=== PATIENT | female | born 1965 | race African-American/Black ===

== ENCOUNTER 2018-07-08 08:17 | Day surgery (SDC) | payer MEDICARE, MEDICAID ==
[~2018-07-08] VITALS: Ht 175.3 cm; Wt 104.3 kg
[~2018-07-08 08:17] MED LIST: ALLO100T PO; AMI2 PO; ASPI-1079 PO; ASPI-1160 PO; ATOR80TA PO; Albuterol Sulfate HHN; CINA30 PO; FURO20TA4 PO; INSU3INS6 SUBCUT; KDUR10 PO; LEVO50TA8 PO; Nystatin SSW; OMEP20CA10 PO; QUET25TA PO; SENN-22 PO; SEVE800T8 PO; Spironolactone PO; ZET10 PO
[2018-07-08] MEDS ORDERED: LACTATED RINGERS 1,000 ML IV SCH (09:15)
[2018-07-08 09:17] LABS: BASOPHILS % 0.8 % (0.0-2.0); EOSINOPHILS % 1.6 % (0.0-5.0); HEMATOCRIT. 40.7 % (36.0-48.0); HEMOGLOBIN. 13.4 g/dL (12.0-16.0); LYMPHOCYTES % 11.7 % (20.0-50.0); MEAN CORPUSCULAR HEMOGLOBIN 30.6 pg (28.0-32.0); MEAN CORPUSCULAR VOLUME 93.1 fL (81.0-99.0); MEAN PLATELET VOLUME 10.7 fl (7.4-10.4); MONOCYTES % 7.5 % (2.0-8.0); NEUTROPHILS % 78.4 % (40.0-76.0); PLATELET 163 x1000/uL (130-400); RED BLOOD CELL COUNT 4.38 mill/uL (4.2-5.4); RED CELL DISTRIBUTION WIDTH 13.3 % (11.6-14.6)
[2018-07-08 09:19] LABS: CLARITY URINE CLEAR (CLEAR); COLOR URINE YELLOW (YELLOW); KETONES URINE NEGATIVE (NEGATIVE); LEUKOCYTE ESTERASE URINE TRACE (NEGATIVE); NITRITE URINE NEGATIVE (NEGATIVE); OCCULT BLOOD URINE 2+ (NEGATIVE); PROTEIN URINE TRACE (NEGATIVE); SPECIFIC GRAVITY URINE 1.025 (1.005-1.030)
[2018-07-08] MEDS ORDERED: VASOPRESSIN 20 UNIT/ML 1ML ONE (09:23)
[2018-07-08 09:29] LABS: PARTIAL THROMBOPLASTIN TIME 25.7 sec (23.4-31.0); PROTHROMBIN TIME 10.7 sec (9.6-11.0)
[2018-07-08] MEDS ORDERED: FENTANYL CITRATE/PF 50MCG/ML 2ML VIAL ONE ×2 (09:58→10:28)
[2018-07-08] MEDS ORDERED: PROPOFOL 200MG/20ML VIAL IV ONE (09:59)
[2018-07-08] MEDS ORDERED: ONDANSETRON HCL 4MG/2ML INJ ONE (09:59)
[2018-07-08] MEDS ORDERED: NEOSTIGMINE METHYLSULFATE 1MG/ML 10 ML VIAL ONE (09:59)
[2018-07-08] MEDS ORDERED: METOCLOPRAMIDE HCL 10MG/2ML VIAL ONE (09:59)
[2018-07-08] MEDS ORDERED: GLYCOPYRROLATE 0.2 MG/ML 2ML VIAL ONE (09:59)
[2018-07-08] MEDS ORDERED: PHENYLEPHRINE HCL 10 MG/ML 1ML (IV VIAL) IV ONE (09:59)
[2018-07-08] MEDS ORDERED: MIDAZOLAM HCL 2 MG/2 ML VIAL ONE (09:59)
[2018-07-08] MEDS ORDERED: SODIUM CHLORIDE 0.9% 10ML VIAL ONE (09:59)
[2018-07-08] MEDS ORDERED: ROCURONIUM BROMIDE 10MG/ML VIAL 5ML IV ONE (09:59)
[2018-07-08] MEDS ORDERED: CEFAZOLIN SODIUM 1000MG/VIAL ONE (09:59)
[2018-07-08] MEDS ORDERED: EPHEDRINE SULFATE 50MG/ML VIAL ONE (09:59)
[2018-07-08] MEDS ORDERED: LIDOCAINE HCL/PF 1% 10 MG/ML 5ML VIAL ONE (09:59)
[2018-07-08] MEDS ORDERED: SUCCINYLCHOLINE CHLORIDE 200MG/10ML IV ONE (09:59)
[2018-07-08] MEDS ORDERED: DEXAMETHASONE 4MG/ML 1ML VIAL ONE (09:59)
[2018-07-08] MEDS ORDERED: DOCU-138 PO (10:00)
[2018-07-08] MEDS ORDERED: SIMV10TA6 PO (10:00)
[2018-07-08] MEDS ORDERED: SACU1TAB4 PO (10:00)
[2018-07-08] MEDS ORDERED: TRAM50TA3 PO (10:00)
[2018-07-08] MEDS ORDERED: DIGO125T20 PO (10:01)
[2018-07-08] MEDS ORDERED: CARV25TA47 PO (10:01)
[2018-07-08] MEDS ORDERED: SPIR25TA6 PO (10:01)
[2018-07-08 10:15] LABS: UCG SCREEN NEGATIVE
[2018-07-08] MEDS ORDERED: ETOMIDATE 2MG/ML 10ML VIAL IV ONE (10:40)
[2018-07-08] MEDS ORDERED: SODIUM CHLORIDE 0.9% 1,000 ML IV ONE (11:25)
[2018-07-08] MEDS ORDERED: ONDANSETRON HCL 4MG/2ML INJ IV PRN (11:30)
[2018-07-08] MEDS ORDERED: MEPERIDINE HCL/PF 25MG/ML CPJ IV PRN (11:30)
[2018-07-08] MEDS: HYDROMORPHONE HCL/PF 2MG/ML CPJ IV PRN ×3 (11:46→12:09)
[2018-07-08 12:09] VITALS: BP 152/87
== END 2018-07-08 13:15 | disposition home or self-care (01) ==
LOC: OR 08:17
PROVIDERS: ATTEND Obstetrics & Gynecology Obstetrics
DX: N85.8 Other specified noninflammatory disorders of uterus (principal)
CPT/HCPCS: 36415; 58558; 80048; 81003; 81025; 85025; 85610; 85730; 88305; 93005; J0330; J0690; J1100; J1170; J2175; J2250; J2370; J2405; J2704; J2765; J3010; J3490; J2710

== ENCOUNTER 2018-12-31 09:40 | Emergency (ER) | payer MEDICARE, MEDICAID ==
[~2018-12-31 09:40] MED LIST changes: -ATOR80TA PO; +CARV25TA47 PO; +DIGO125T20 PO; +DOCU-138 PO; +EZET10TA13 PO; -INSU3INS6 SUBCUT; -OMEP20CA10 PO; +OMEP20CA5 PO; +SACU1TAB4 PO; +SIMV10TA6 PO; +SPIR25TA6 PO; +TRAM50TA3 PO; -ZET10 PO
== END 2018-12-31 10:45 | disposition left against medical advice (07) ==
LOC: ER 09:40
DX: Z53.21 Procedure and treatment not carried out due to patient leaving prior to being seen by health care provider (principal)

== ENCOUNTER 2019-08-01 13:38 | Inpatient (IN) | payer MEDICARE, MEDICAID ==
[~2019-08-01] VITALS: Ht 175.3 cm; Wt 129.3 kg
[~2019-08-01 13:38] MED LIST changes: +OMEP20CA14 PO; -OMEP20CA5 PO; -SIMV10TA6 PO; +SIMV10TA97 PO
[2019-08-01] MEDS ORDERED: FUROSEMIDE 40MG/4ML VIAL IVP ONE (14:30)
[2019-08-01 16:27] LABS: CHLORIDE 112 mEq/L (98-107)
[2019-08-01 16:29] LABS: INR 1.1; PROTHROMBIN TIME 11.4 sec (9.6-11.0)
[2019-08-01 16:43] LABS: BASOPHILS % 0.8 % (0.0-2.0); EOSINOPHILS % 0.6 % (0.0-5.0); HEMATOCRIT. 34.8 % (36.0-48.0); HEMOGLOBIN. 11.6 g/dL (12.0-16.0); LYMPHOCYTES % 13.1 % (20.0-50.0); MEAN CORPUSCULAR HEMOGLOBIN 31.5 pg (28.0-32.0); MEAN CORPUSCULAR VOLUME 94.7 fL (81.0-99.0); MEAN PLATELET VOLUME 9.9 fl (7.4-10.4); MONOCYTES % 6.8 % (2.0-8.0); NEUTROPHILS % 78.7 % (40.0-76.0); PLATELET 205 x1000/uL (130-400); RED BLOOD CELL COUNT 3.67 mill/uL (4.2-5.4); RED CELL DISTRIBUTION WIDTH 14.7 % (11.6-14.6)
[2019-08-01] MEDS ORDERED: ONDANSETRON HCL 4MG/2ML INJ IV ONE (16:45)
[2019-08-01 21:42] VITALS: BP 144/53
[2019-08-01] MEDS ORDERED: CINACALCET HCL 30MG TABLET PO PRN (23:00)
[2019-08-02] VITALS (11 sets, daily range): BP systolic 86–144; BP diastolic 34–77
[2019-08-02] MEDS: ALBUTEROL (0.083%) 2.5MG/3ML NEB HHN SCH ×6 (01:56→21:08)
[2019-08-02] MEDS ORDERED: TRAMADOL 50MG TABLET PO PRN (02:32)
[2019-08-02] MEDS: LEVOTHYROXINE SODIUM 50MCG TABLET PO SCH (05:46)
[2019-08-02] MEDS: OMEPRAZOLE 20MG CAPSULE EXTENDED RELEASE PO SCH ×2 (05:46→16:59)
[2019-08-02] MEDS: ASPIRIN 325MG EC TABLET PO SCH (08:51)
[2019-08-02] MEDS: ALLOPURINOL 100 MG TABLET PO SCH (08:52)
[2019-08-02] MEDS: EZETIMIBE 10MG TABLET PO SCH (08:52)
[2019-08-02] MEDS: CARVEDILOL 12.5MG TABLET PO SCH ×2 (08:52→20:31)
[2019-08-02] MEDS: SPIRONOLACTONE 25MG TABLET PO SCH (08:52)
[2019-08-02] MEDS: POTASSIUM CHLORIDE 10MEQ TABLET SR PO SCH (08:53)
[2019-08-02] MEDS: AMIODARONE HCL 200 MG TABLET PO SCH (08:53)
[2019-08-02] MEDS: SEVELAMER CARBONATE 800 MG TABLET PO SCH ×3 (08:53→20:30)
[2019-08-02] MEDS: QUETIAPINE FUMARATE 25MG TABLET PO SCH ×2 (08:53→20:30)
[2019-08-02] MEDS ORDERED: METOLAZONE 5MG TABLET PO NR (14:00)
[2019-08-02] MEDS ORDERED: FUROSEMIDE 40MG/4ML VIAL IVP NR (14:00)
[2019-08-02] MEDS: MILRINONE 20MG-DEXT 5% PREMIX 100 ML IV SCH ×2 (15:36→20:31)
[2019-08-02] MEDS: SENNOSIDES 8.6MG TABLET PO SCH (16:26)
[2019-08-02] MEDS: DOCUSATE SODIUM 100MG CAPSULE PO SCH (16:26)
[2019-08-02] MEDS: DIGOXIN 125MCG TABLET PO SCH (17:36)
[2019-08-03] VITALS (7 sets, daily range): BP systolic 107–160; BP diastolic 52–91
[2019-08-03] MEDS: ALBUTEROL (0.083%) 2.5MG/3ML NEB HHN SCH ×6 (01:50→20:23)
[2019-08-03] MEDS: MILRINONE 20MG-DEXT 5% PREMIX 100 ML IV SCH ×2 (03:09→18:32)
[2019-08-03] MEDS: OMEPRAZOLE 20MG CAPSULE EXTENDED RELEASE PO SCH (06:50)
[2019-08-03] MEDS: LEVOTHYROXINE SODIUM 50MCG TABLET PO SCH (06:50)
[2019-08-03 07:59] LABS: BASOPHILS % 0.8 % (0.0-2.0); EOSINOPHILS % 2.4 % (0.0-5.0); HEMATOCRIT. 36.1 % (36.0-48.0); HEMOGLOBIN. 11.7 g/dL (12.0-16.0); LYMPHOCYTES % 20.3 % (20.0-50.0); MEAN CORPUSCULAR HEMOGLOBIN 31.8 pg (28.0-32.0); MEAN CORPUSCULAR VOLUME 98.3 fL (81.0-99.0); MONOCYTES % 11.8 % (2.0-8.0); NEUTROPHILS % 64.7 % (40.0-76.0); RED BLOOD CELL COUNT 3.67 mill/uL (4.2-5.4); RED CELL DISTRIBUTION WIDTH 15.1 % (11.6-14.6)
[2019-08-03] MEDS: SEVELAMER CARBONATE 800 MG TABLET PO SCH ×3 (08:10→18:41)
[2019-08-03] MEDS: ASPIRIN 325MG EC TABLET PO SCH (08:10)
[2019-08-03] MEDS: AMIODARONE HCL 200 MG TABLET PO SCH (08:10)
[2019-08-03] MEDS: SENNOSIDES 8.6MG TABLET PO SCH (08:10)
[2019-08-03] MEDS: QUETIAPINE FUMARATE 25MG TABLET PO SCH ×2 (08:11→21:02)
[2019-08-03] MEDS: ALLOPURINOL 100 MG TABLET PO SCH (08:11)
[2019-08-03] MEDS: DOCUSATE SODIUM 100MG CAPSULE PO SCH (08:11)
[2019-08-03] MEDS: CARVEDILOL 12.5MG TABLET PO SCH ×2 (08:11→21:02)
[2019-08-03] MEDS: SPIRONOLACTONE 25MG TABLET PO SCH (08:12)
[2019-08-03] MEDS: EZETIMIBE 10MG TABLET PO SCH (08:12)
[2019-08-03] MEDS: POTASSIUM CHLORIDE 10MEQ TABLET SR PO SCH (09:00)
[2019-08-03] MEDS ORDERED: FENTANYL CITRATE/PF 50MCG/ML 2ML VIAL IV PRN (09:48)
[2019-08-03] MEDS ORDERED: MIDAZOLAM HCL 2 MG/2 ML VIAL ONE (09:48)
[2019-08-03] MEDS ORDERED: FENTANYL CITRATE/PF 50MCG/ML 2ML VIAL ONE (09:48)
[2019-08-03] MEDS ORDERED: DOPAMINE 400MG/250ML PREMIX 250 ML IV ONE (09:56)
[2019-08-03] MEDS ORDERED: PROPOFOL 200MG/20ML VIAL IV ONE ×2 (09:58→14:39)
[2019-08-03] MEDS ORDERED: ROCURONIUM BROMIDE 10MG/ML VIAL 5ML IV ONE (10:14)
[2019-08-03] MEDS ORDERED: IODIXANOL 320MG/ML 100 ML BOTTLE IV ONE (10:24)
[2019-08-03] MEDS ORDERED: LIDOCAINE HCL 1% 20ML VIAL (Pyxis) INJ ONE ×3 (10:29→12:26)
[2019-08-03] MEDS ORDERED: LIDOCAINE HCL/PF 1% 10 MG/ML 5ML VIAL ONE (10:58)
[2019-08-03] MEDS ORDERED: GENTAMICIN/NS IRRIGATION 500 ML IR ONE (12:21)
[2019-08-03] MEDS ORDERED: EPHEDRINE SULFATE 50MG/ML VIAL ONE (14:40)
[2019-08-03] MEDS ORDERED: VASOPRESSIN 20 UNIT/ML 1ML ONE (14:40)
[2019-08-03] MEDS ORDERED: GENTAMICIN SULF 40MG/ML 2ML VIAL ONE (15:04)
[2019-08-03] MEDS: SODIUM CHLORIDE 0.9% 1,000 ML IV SCH (16:30)
[2019-08-03] MEDS: ONDANSETRON HCL 4MG/2ML INJ IV PRN ×2 (16:49→19:40)
[2019-08-03] MEDS ORDERED: VANCOMYCIN 1 G PREMIX 200 ML IV NR (17:00)
[2019-08-03] MEDS: DIGOXIN 125MCG TABLET PO SCH (18:37)
[2019-08-03] MEDS ORDERED: ONDANSETRON HCL 4MG/2ML INJ IV PRN (19:15)
[2019-08-03] MEDS: HYDROCODONE/ACETAMINOPHEN 5/325MG TABLET PO PRN (21:03)
[2019-08-03] MEDS ORDERED: HYDROMORPHONE HCL/PF 2MG/ML CPJ IV PRN (23:00)
[2019-08-04] VITALS (10 sets, daily range): BP systolic 91–122; BP diastolic 43–72
[2019-08-04] MEDS: MILRINONE 20MG-DEXT 5% PREMIX 100 ML IV SCH ×3 (01:12→21:21)
[2019-08-04] MEDS: ALBUTEROL (0.083%) 2.5MG/3ML NEB HHN SCH ×5 (01:37→21:53)
[2019-08-04] MEDS ORDERED: FAMOTIDINE 20MG TABLET PO SCH (09:00)
[2019-08-04] MEDS: CARVEDILOL 12.5MG TABLET PO SCH ×2 (09:20→21:19)
[2019-08-04] MEDS: EZETIMIBE 10MG TABLET PO SCH (09:20)
[2019-08-04] MEDS: SEVELAMER CARBONATE 800 MG TABLET PO SCH ×3 (09:21→17:20)
[2019-08-04] MEDS: ASPIRIN 325MG EC TABLET PO SCH (09:21)
[2019-08-04] MEDS: ALLOPURINOL 100 MG TABLET PO SCH (09:22)
[2019-08-04] MEDS: LEVOTHYROXINE SODIUM 50MCG TABLET PO SCH (09:22)
[2019-08-04] MEDS: SENNOSIDES 8.6MG TABLET PO SCH (09:22)
[2019-08-04] MEDS: POTASSIUM CHLORIDE 10MEQ TABLET SR PO SCH (09:22)
[2019-08-04] MEDS: AMIODARONE HCL 200 MG TABLET PO SCH (09:23)
[2019-08-04] MEDS: SPIRONOLACTONE 25MG TABLET PO SCH (09:24)
[2019-08-04] MEDS: DOCUSATE SODIUM 100MG CAPSULE PO SCH (09:24)
[2019-08-04] MEDS: QUETIAPINE FUMARATE 25MG TABLET PO SCH ×2 (09:24→21:19)
[2019-08-04 11:26] LABS: HEMATOCRIT. 32.9 % (36.0-48.0); HEMOGLOBIN. 10.9 g/dL (12.0-16.0); MEAN CORPUSCULAR HEMOGLOBIN 31.6 pg (28.0-32.0); MEAN CORPUSCULAR VOLUME 95.4 fL (81.0-99.0); MEAN PLATELET VOLUME 10.2 fl (7.4-10.4); PLATELET 174 x1000/uL (130-400); RED BLOOD CELL COUNT 3.45 mill/uL (4.2-5.4); RED CELL DISTRIBUTION WIDTH 14.3 % (11.6-14.6)
[2019-08-04 12:09] LABS: DIGOXIN 0.5 ng/mL (0.9-2.0)
[2019-08-04] MEDS: SODIUM CHLORIDE 0.9% 1,000 ML IV SCH (12:30)
[2019-08-04 12:48] LABS: PLATELET ESTIMATE NORMAL
[2019-08-04] MEDS ORDERED: SODIUM BICARBONATE 4% (2.4MEQ) 5ML VIAL IV ONE (12:50)
[2019-08-04] MEDS ORDERED: LIDOCAINE HCL 1% 20ML VIAL (Pyxis) INJ ONE (12:50)
[2019-08-04] MEDS ORDERED: IOHEXOL-300 50 ML BOTTLE IV ONE (13:19)
[2019-08-04] MEDS: HYDROCODONE/ACETAMINOPHEN 5/325MG TABLET PO PRN (15:18)
[2019-08-04] MEDS: DIGOXIN 125MCG TABLET PO SCH (18:40)
[2019-08-04] MEDS ORDERED: DOCUSATE SODIUM 100MG CAPSULE PO SCH (21:00)
[2019-08-04] MEDS ORDERED: BISACODYL 10MG SUPP PR PRN (21:00)
[2019-08-05] VITALS (49 sets, daily range): BP systolic 43–162; BP diastolic 0–81
[2019-08-05] MEDS: HYDROCODONE/ACETAMINOPHEN 5/325MG TABLET PO PRN (03:39)
[2019-08-05] MEDS: MILRINONE 20MG-DEXT 5% PREMIX 100 ML IV SCH (04:06)
[2019-08-05] MEDS: BLOOD SUGAR DIAGNOSTIC STRIP TEST NR (05:36)
[2019-08-05] MEDS ORDERED: BUPIVACAINE/EPINEPH/PF 0.25%/0.0005 10ML ONE (05:58)
[2019-08-05] MEDS ORDERED: LIDOCAINE HCL/EPINEPHRINE 1%-EPI 1:100,000 20 ML VIAL ONE (05:58)
[2019-08-05] MEDS ORDERED: VANCOMYCIN 1 G PREMIX 200 ML IV ONE (06:00)
[2019-08-05] MEDS ORDERED: ROPIVACAINE HCL/PF EPIDURAL 200 ML EPI SCH (06:00)
[2019-08-05] MEDS ORDERED: BACITRACIN 50,000 UNITS/VIAL ONE ×2 (06:31→12:01)
[2019-08-05] MEDS ORDERED: BACITRACIN 15GM TUBE TOP ONE (06:31)
[2019-08-05] MEDS ORDERED: NORMAL SALINE 0.9% 10 ML SYR ONE (06:39)
[2019-08-05] MEDS: LEVOTHYROXINE SODIUM 50MCG TABLET PO SCH (06:50)
[2019-08-05] MEDS ORDERED: MIDAZOLAM HCL 5 MG/ML VIAL ONE (07:06)
[2019-08-05] MEDS ORDERED: TETRACAINE/BENZOCAINE/BUTAMBEN 20 GM SPRAY MM ONE (07:08)
[2019-08-05] MEDS ORDERED: DEXAMETHASONE 4MG/ML 1ML VIAL ONE (07:08)
[2019-08-05] MEDS ORDERED: PROPOFOL 200MG/20ML VIAL IV ONE (07:08)
[2019-08-05] MEDS ORDERED: ETOMIDATE 2MG/ML 10ML VIAL IV ONE (07:08)
[2019-08-05] MEDS ORDERED: ONDANSETRON HCL 4MG/2ML INJ ONE (07:08)
[2019-08-05 07:12] LABS: CHLORIDE 106 mEq/L (98-107)
[2019-08-05] MEDS ORDERED: SKIN ADHESIVE 0.7 GM EA TOP ONE (07:35)
[2019-08-05] MEDS: ALBUTEROL (0.083%) 2.5MG/3ML NEB HHN SCH ×3 (07:43→21:45)
[2019-08-05] MEDS: SENNOSIDES 8.6MG TABLET PO SCH (09:00)
[2019-08-05] MEDS: SPIRONOLACTONE 25MG TABLET PO SCH (09:00)
[2019-08-05] MEDS: CARVEDILOL 12.5MG TABLET PO SCH ×2 (09:00→21:00)
[2019-08-05] MEDS: AMIODARONE HCL 200 MG TABLET PO SCH (09:00)
[2019-08-05] MEDS: POTASSIUM CHLORIDE 10MEQ TABLET SR PO SCH (09:00)
[2019-08-05] MEDS: ALLOPURINOL 100 MG TABLET PO SCH (09:00)
[2019-08-05] MEDS: QUETIAPINE FUMARATE 25MG TABLET PO SCH ×2 (09:00→21:00)
[2019-08-05] MEDS: EZETIMIBE 10MG TABLET PO SCH (09:00)
[2019-08-05] MEDS ORDERED: CLINDAMYCIN 900 MG PREMIX 50 ML IV ONE (09:20)
[2019-08-05] MEDS ORDERED: ROCURONIUM BROMIDE 10MG/ML VIAL 5ML IV ONE (09:25)
[2019-08-05] MEDS ORDERED: THROMBIN (BOVINE) 5000 UNITS/VIAL TOP ONE (10:52)
[2019-08-05] MEDS ORDERED: PHENYLEPHRINE HCL 10 MG/ML 1ML (IV VIAL) IV ONE (11:04)
[2019-08-05] MEDS ORDERED: NEOSTIGMINE METHYLSULFATE 1MG/ML 10 ML VIAL ONE (11:26)
[2019-08-05] MEDS ORDERED: EPHEDRINE SULFATE 50MG/ML VIAL ONE (11:26)
[2019-08-05] MEDS ORDERED: LIDOCAINE HCL/PF 1% 10 MG/ML 5ML VIAL ONE (11:26)
[2019-08-05] MEDS ORDERED: EPINEPHRINE 0.1MG/ML (1:10,000) 10ML SYR ONE (11:30)
[2019-08-05] MEDS ORDERED: MILRINONE 20MG-DEXT 5% PREMIX 100 ML IV SCH (12:59)
[2019-08-05] MEDS ORDERED: SODIUM CHLORIDE 0.9% 500 ML IV PRN (12:59)
[2019-08-05] MEDS ORDERED: ACETAMINOPHEN 325MG TABLET PO PRN (13:00)
[2019-08-05] MEDS ORDERED: ONDANSETRON HCL 4MG/2ML INJ IV PRN (13:00)
[2019-08-05 13:15] LABS: BG BASE EXCESS -2.1 mmol/L (-2.0-2.0); BG CARBOXYHEMOGLOBIN 0.3 % (0.5-1.5); BG DEOXYHEMOGLOBIN 3.9 % (0.0-5.0); BG FRACTION INSPIRED OXYGEN 44; BG HCO3 ACT 23.8 mmol/L (22.0-26.0); BG METHEMOGLOBIN 0.1 % (0.0-1.5); BG OXYGEN SATURATION 96.1 % (92.0-98.5); BG OXYHEMOGLOBIN 95.7 % (94.0-97.0); BG PCO2 45.1 mmHg (35.0-45.0); BG PO2 84.7 mmHg (75.0-100.0); BG SAMPLE SITE A-LINE; BG TOTAL HEMOGLOBIN 11.3 g/dL (12.0-18.0); BG VENT MODE MASK - SIMPLE
[2019-08-05] MEDS: SEVELAMER CARBONATE 800 MG TABLET PO SCH ×2 (13:20→18:25)
[2019-08-05] MEDS ORDERED: FUROSEMIDE 40MG/4ML VIAL IVP NR (14:00)
[2019-08-05] MEDS: DOCUSATE SODIUM 100MG CAPSULE PO SCH ×2 (14:51→18:25)
[2019-08-05] MEDS: MAGNESIUM HYDROXIDE 400MG/5ML 30ML UDC PO SCH ×3 (14:51→21:11)
[2019-08-05 14:54] LABS: CHLORIDE 108 mEq/L (98-107)
[2019-08-05 15:00] LABS: HEMOGLOBIN. 10.5 g/dL (12.0-16.0); MEAN CORPUSCULAR HEMOGLOBIN 31.9 pg (28.0-32.0); MEAN CORPUSCULAR VOLUME 94.3 fL (81.0-99.0); MEAN PLATELET VOLUME 10.5 fl (7.4-10.4); PHOSPHORUS 2.7 mg/dL (2.5-4.9); PLATELET 177 x1000/uL (130-400); RED BLOOD CELL COUNT 3.29 mill/uL (4.2-5.4); RED CELL DISTRIBUTION WIDTH 14.3 % (11.6-14.6)
[2019-08-05 15:22] LABS: PLATELET ESTIMATE NORMAL
[2019-08-05] MEDS: IPRATROPIUM/ALBUTEROL 0.5-3(2.5)MG/3ML NEB HHN SCH ×2 (16:33→20:31)
[2019-08-05] MEDS: DIGOXIN 125MCG TABLET PO SCH (18:00)
[2019-08-05] MEDS: DEXT 5%/0.45% NACL 1000ML 1,000 ML IV SCH (18:25)
[2019-08-05] MEDS: VANCOMYCIN 1 G PREMIX 200 ML IV SCH (19:27)
[2019-08-05 20:29] LABS: HEMATOCRIT. 31.3 % (36.0-48.0); HEMOGLOBIN. 10.4 g/dL (12.0-16.0); MEAN CORPUSCULAR HEMOGLOBIN 31.5 pg (28.0-32.0); MEAN CORPUSCULAR VOLUME 94.9 fL (81.0-99.0); MEAN PLATELET VOLUME 10.1 fl (7.4-10.4); PLATELET 173 x1000/uL (130-400); RED CELL DISTRIBUTION WIDTH 14.4 % (11.6-14.6)
[2019-08-05] MEDS: MORPHINE SULFATE 2 MG/ML CPJ (NOT FOR IM USE) IV PRN ×2 (20:32→22:16)
[2019-08-05 21:53] LABS: PLATELET ESTIMATE NORMAL
[2019-08-06] VITALS (63 sets, daily range): BP systolic 75–149; BP diastolic 31–110
[2019-08-06] MEDS: MORPHINE SULFATE 2 MG/ML CPJ (NOT FOR IM USE) IV PRN ×3 (00:02→06:04)
[2019-08-06] MEDS: MAGNESIUM HYDROXIDE 400MG/5ML 30ML UDC PO SCH ×4 (00:02→13:25)
[2019-08-06] MEDS: IPRATROPIUM/ALBUTEROL 0.5-3(2.5)MG/3ML NEB HHN SCH ×6 (00:13→20:44)
[2019-08-06 00:51] LABS: HEMATOCRIT. 30.6 % (36.0-48.0); HEMOGLOBIN. 10.3 g/dL (12.0-16.0); MEAN CORPUSCULAR HEMOGLOBIN 31.7 pg (28.0-32.0); MEAN CORPUSCULAR VOLUME 93.8 fL (81.0-99.0); MEAN PLATELET VOLUME 9.4 fl (7.4-10.4); PLATELET 163 x1000/uL (130-400); RED BLOOD CELL COUNT 3.26 mill/uL (4.2-5.4); RED CELL DISTRIBUTION WIDTH 14.4 % (11.6-14.6)
[2019-08-06 01:46] LABS: PLATELET ESTIMATE NORMAL
[2019-08-06] MEDS: BLOOD SUGAR DIAGNOSTIC STRIP TEST NR (05:00)
[2019-08-06 05:28] LABS: HEMOGLOBIN. 10.3 g/dL (12.0-16.0); MEAN CORPUSCULAR HEMOGLOBIN 31.4 pg (28.0-32.0); MEAN CORPUSCULAR VOLUME 94.7 fL (81.0-99.0); MEAN PLATELET VOLUME 10.1 fl (7.4-10.4); PLATELET 165 x1000/uL (130-400); RED BLOOD CELL COUNT 3.28 mill/uL (4.2-5.4); RED CELL DISTRIBUTION WIDTH 14.4 % (11.6-14.6)
[2019-08-06 06:12] LABS: PHOSPHORUS 2.1 mg/dL (2.5-4.9)
[2019-08-06] MEDS ORDERED: ALBUMIN HUMAN 12.5G/250ML (5%) IV SCH (09:00)
[2019-08-06] MEDS ORDERED: ROPIVACAINE HCL/PF EPIDURAL 200 ML EPI SCH (09:15)
[2019-08-06] MEDS: POTASSIUM CHLORIDE 10MEQ TABLET SR PO SCH (09:52)
[2019-08-06] MEDS: FAMOTIDINE 20MG/2ML VIAL IV SCH (09:52)
[2019-08-06] MEDS: SEVELAMER CARBONATE 800 MG TABLET PO SCH ×3 (09:52→17:00)
[2019-08-06] MEDS: LEVOTHYROXINE SODIUM 50MCG TABLET PO SCH (09:52)
[2019-08-06] MEDS: AMIODARONE HCL 200 MG TABLET PO SCH (09:53)
[2019-08-06] MEDS: DOCUSATE SODIUM 100MG CAPSULE PO SCH ×2 (09:53→17:00)
[2019-08-06] MEDS: SENNOSIDES 8.6MG TABLET PO SCH (09:53)
[2019-08-06] MEDS: EZETIMIBE 10MG TABLET PO SCH (09:53)
[2019-08-06] MEDS: QUETIAPINE FUMARATE 25MG TABLET PO SCH ×2 (09:53→20:25)
[2019-08-06] MEDS: SPIRONOLACTONE 25MG TABLET PO SCH (09:54)
[2019-08-06] MEDS: ALLOPURINOL 100 MG TABLET PO SCH (09:55)
[2019-08-06 10:08] LABS: PLATELET ESTIMATE NORMAL
[2019-08-06] MEDS: CARVEDILOL 12.5MG TABLET PO SCH ×2 (10:30→20:25)
[2019-08-06] MEDS ORDERED: FUROSEMIDE 40MG/4ML VIAL IVP NR (11:37)
[2019-08-06] MEDS: DEXT 5%/0.45% NACL 1000ML 1,000 ML IV SCH (13:25)
[2019-08-06] MEDS: HYDROCODONE/ACETAMINOPHEN 5/325MG TABLET PO PRN (13:26)
[2019-08-06] MEDS ORDERED: ALBUMIN HUMAN 12.5G/250ML (5%) IV NR (16:00)
[2019-08-06] MEDS: VANCOMYCIN 1 G PREMIX 200 ML IV SCH (16:58)
[2019-08-06] MEDS: DIGOXIN 125MCG TABLET PO SCH (17:00)
[2019-08-07] VITALS (42 sets, daily range): BP systolic 85–167; BP diastolic 40–159
[2019-08-07] MEDS: IPRATROPIUM/ALBUTEROL 0.5-3(2.5)MG/3ML NEB HHN SCH ×4 (00:27→16:30)
[2019-08-07] MEDS: HYDROCODONE/ACETAMINOPHEN 5/325MG TABLET PO PRN ×2 (01:57→15:27)
[2019-08-07 06:28] LABS: HEMATOCRIT. 28.5 % (36.0-48.0); HEMOGLOBIN. 9.4 g/dL (12.0-16.0); MEAN PLATELET VOLUME 10.4 fl (7.4-10.4); PLATELET 145 x1000/uL (130-400); RED BLOOD CELL COUNT 3.03 mill/uL (4.2-5.4); RED CELL DISTRIBUTION WIDTH 14.4 % (11.6-14.6)
[2019-08-07 06:41] LABS: PHOSPHORUS 2.9 mg/dL (2.5-4.9)
[2019-08-07] MEDS: LEVOTHYROXINE SODIUM 50MCG TABLET PO SCH (08:02)
[2019-08-07] MEDS: DOCUSATE SODIUM 100MG CAPSULE PO SCH ×2 (08:28→17:47)
[2019-08-07] MEDS: SPIRONOLACTONE 25MG TABLET PO SCH (08:29)
[2019-08-07] MEDS: POTASSIUM CHLORIDE 10MEQ TABLET SR PO SCH (08:30)
[2019-08-07] MEDS: EZETIMIBE 10MG TABLET PO SCH (08:30)
[2019-08-07] MEDS: ALLOPURINOL 100 MG TABLET PO SCH (08:30)
[2019-08-07] MEDS: SEVELAMER CARBONATE 800 MG TABLET PO SCH ×3 (08:30→17:47)
[2019-08-07] MEDS: QUETIAPINE FUMARATE 25MG TABLET PO SCH ×2 (08:30→22:10)
[2019-08-07] MEDS: FAMOTIDINE 20MG/2ML VIAL IV SCH (08:30)
[2019-08-07] MEDS: SENNOSIDES 8.6MG TABLET PO SCH (08:30)
[2019-08-07] MEDS: AMIODARONE HCL 200 MG TABLET PO SCH (08:30)
[2019-08-07] MEDS: CARVEDILOL 12.5MG TABLET PO SCH ×2 (08:31→22:10)
[2019-08-07] MEDS: DEXT 5%/0.45% NACL 1000ML 1,000 ML IV SCH (09:05)
[2019-08-07 10:03] LABS: CLARITY URINE CLOUDY (CLEAR); COLOR URINE YELLOW (YELLOW); KETONES URINE NEGATIVE (NEGATIVE); LEUKOCYTE ESTERASE URINE 1+ (NEGATIVE); NITRITE URINE NEGATIVE (NEGATIVE); OCCULT BLOOD URINE 3+ (NEGATIVE); PROTEIN URINE 1+ (NEGATIVE); SPECIFIC GRAVITY URINE 1.023 (1.005-1.030)
[2019-08-07 11:56] LABS: PLATELET ESTIMATE NORMAL
[2019-08-07] MEDS ORDERED: LORAZEPAM 2MG/ML CPJ IV PRN (15:30)
[2019-08-07] MEDS ORDERED: VANCOMYCIN 1 G PREMIX 200 ML IV SCH (16:00)
[2019-08-07] MEDS ORDERED: ROPIVACAINE HCL/PF EPIDURAL 200 ML EPI SCH (17:30)
[2019-08-07] MEDS: DIGOXIN 125MCG TABLET PO SCH (17:47)
[2019-08-08] VITALS (42 sets, daily range): BP systolic 77–181; BP diastolic 32–127
[2019-08-08] MEDS: ALBUTEROL (0.083%) 2.5MG/3ML NEB HHN SCH ×3 (00:33→20:15)
[2019-08-08] MEDS: CARVEDILOL 12.5MG TABLET PO SCH ×4 (00:36→20:26)
[2019-08-08] MEDS: HYDROCODONE/ACETAMINOPHEN 5/325MG TABLET PO PRN ×2 (01:32→15:02)
[2019-08-08] MEDS: FAMOTIDINE 20MG/2ML VIAL IV SCH (08:25)
[2019-08-08] MEDS: ALLOPURINOL 100 MG TABLET PO SCH (08:26)
[2019-08-08] MEDS: LEVOTHYROXINE SODIUM 50MCG TABLET PO SCH (08:26)
[2019-08-08] MEDS: SPIRONOLACTONE 25MG TABLET PO SCH (08:26)
[2019-08-08] MEDS: EZETIMIBE 10MG TABLET PO SCH (08:27)
[2019-08-08] MEDS: QUETIAPINE FUMARATE 25MG TABLET PO SCH ×2 (08:27→20:50)
[2019-08-08] MEDS: SENNOSIDES 8.6MG TABLET PO SCH (08:27)
[2019-08-08] MEDS: SEVELAMER CARBONATE 800 MG TABLET PO SCH ×3 (08:27→18:04)
[2019-08-08] MEDS: AMIODARONE HCL 200 MG TABLET PO SCH (08:27)
[2019-08-08] MEDS: DOCUSATE SODIUM 100MG CAPSULE PO SCH ×2 (08:27→18:04)
[2019-08-08] MEDS: IPRATROPIUM/ALBUTEROL 0.5-3(2.5)MG/3ML NEB HHN SCH ×3 (09:45→17:12)
[2019-08-08 11:15] LABS: BASOPHILS % 0.7 % (0.0-2.0); EOSINOPHILS % 2.6 % (0.0-5.0); HEMATOCRIT. 29.4 % (36.0-48.0); HEMOGLOBIN. 9.6 g/dL (12.0-16.0); LYMPHOCYTES % 7.1 % (20.0-50.0); MEAN CORPUSCULAR VOLUME 94.8 fL (81.0-99.0); MONOCYTES % 8.6 % (2.0-8.0); RED CELL DISTRIBUTION WIDTH 14.4 % (11.6-14.6)
[2019-08-08 11:40] LABS: PLATELET 146 x1000/uL (130-400)
[2019-08-08 12:04] LABS: PHOSPHORUS 3.6 mg/dL (2.5-4.9)
[2019-08-08] MEDS ORDERED: LEVOFLOXACIN 500MG PREMIX 100 ML IV SCH (14:00)
[2019-08-08] MEDS ORDERED: PIPERACILLIN/TAZOBACTAM 3.375 G/VIAL IV SCH (14:00)
[2019-08-08] MEDS: DEXT 5%/0.45% NACL 1000ML 1,000 ML IV SCH (14:02)
[2019-08-08] MEDS: VANCOMYCIN 1 G PREMIX 200 ML IV SCH (16:04)
[2019-08-08] MEDS: MORPHINE SULFATE 2 MG/ML CPJ (NOT FOR IM USE) IV PRN ×3 (17:17→23:13)
[2019-08-08] MEDS: DIGOXIN 125MCG TABLET PO SCH (18:04)
[2019-08-08] MEDS: ENOXAPARIN 30MG/0.3ML SYR SUBCUT SCH (18:04)
[2019-08-09] VITALS (37 sets, daily range): BP systolic 89–181; BP diastolic 25–154
[2019-08-09] MEDS: IPRATROPIUM/ALBUTEROL 0.5-3(2.5)MG/3ML NEB HHN SCH ×6 (00:10→20:36)
[2019-08-09] MEDS: HYDROMORPHONE HCL/PF 2MG/ML CPJ IV PRN (00:31)
[2019-08-09 06:30] LABS: MEAN CORPUSCULAR HEMOGLOBIN 31.3 pg (28.0-32.0); MEAN CORPUSCULAR VOLUME 93.5 fL (81.0-99.0); MEAN PLATELET VOLUME 10.8 fl (7.4-10.4); PLATELET 164 x1000/uL (130-400); RED BLOOD CELL COUNT 3.21 mill/uL (4.2-5.4); RED CELL DISTRIBUTION WIDTH 14.3 % (11.6-14.6)
[2019-08-09] MEDS: LEVOTHYROXINE SODIUM 50MCG TABLET PO SCH (07:28)
[2019-08-09] MEDS: FAMOTIDINE 20MG/2ML VIAL IV SCH (07:29)
[2019-08-09] MEDS: SEVELAMER CARBONATE 800 MG TABLET PO SCH ×3 (07:29→16:55)
[2019-08-09] MEDS: ALLOPURINOL 100 MG TABLET PO SCH (07:30)
[2019-08-09] MEDS: AMIODARONE HCL 200 MG TABLET PO SCH (07:30)
[2019-08-09] MEDS: QUETIAPINE FUMARATE 25MG TABLET PO SCH ×2 (07:30→21:08)
[2019-08-09] MEDS: SPIRONOLACTONE 25MG TABLET PO SCH (07:30)
[2019-08-09] MEDS: ENOXAPARIN 30MG/0.3ML SYR SUBCUT SCH ×2 (07:30→21:07)
[2019-08-09] MEDS: DOCUSATE SODIUM 100MG CAPSULE PO SCH ×2 (07:31→16:03)
[2019-08-09] MEDS: SENNOSIDES 8.6MG TABLET PO SCH (07:31)
[2019-08-09] MEDS: EZETIMIBE 10MG TABLET PO SCH (07:31)
[2019-08-09] MEDS: MORPHINE SULFATE 2 MG/ML CPJ (NOT FOR IM USE) IV PRN ×4 (07:47→21:19)
[2019-08-09] MEDS: CARVEDILOL 12.5MG TABLET PO SCH ×2 (08:50→21:08)
[2019-08-09] MEDS: DEXT 5%/0.45% NACL 1000ML 1,000 ML IV SCH (10:42)
[2019-08-09 11:05] LABS: PLATELET ESTIMATE NORMAL
[2019-08-09] MEDS ORDERED: LEVOFLOXACIN 250MG PREMIX 50 ML IV SCH (14:00)
[2019-08-09] MEDS: DIGOXIN 125MCG TABLET PO SCH (16:54)
[2019-08-09] MEDS: VANCOMYCIN 1 G PREMIX 200 ML IV SCH (16:57)
[2019-08-09] MEDS: MEROPENEM 500 MG in SODIUM CHLORIDE 0.9% 50 ML IV SCH (23:08)
[2019-08-10] VITALS (11 sets, daily range): BP systolic 96–152; BP diastolic 22–98
[2019-08-10] MEDS: IPRATROPIUM/ALBUTEROL 0.5-3(2.5)MG/3ML NEB HHN SCH ×6 (00:39→22:09)
[2019-08-10] MEDS: SEVELAMER CARBONATE 800 MG TABLET PO SCH ×3 (06:44→18:06)
[2019-08-10] MEDS: LEVOTHYROXINE SODIUM 50MCG TABLET PO SCH (06:45)
[2019-08-10] MEDS: MEROPENEM 500 MG in SODIUM CHLORIDE 0.9% 50 ML IV SCH ×3 (06:47→23:34)
[2019-08-10 07:59] LABS: BASOPHILS % 0.7 % (0.0-2.0); EOSINOPHILS % 3.2 % (0.0-5.0); HEMATOCRIT. 27.3 % (36.0-48.0); HEMOGLOBIN. 9.1 g/dL (12.0-16.0); LYMPHOCYTES % 9.6 % (20.0-50.0); MEAN CORPUSCULAR HEMOGLOBIN 31.5 pg (28.0-32.0); MEAN CORPUSCULAR VOLUME 94.5 fL (81.0-99.0); MEAN PLATELET VOLUME 10.2 fl (7.4-10.4); MONOCYTES % 12.6 % (2.0-8.0); NEUTROPHILS % 73.9 % (40.0-76.0); PLATELET 169 x1000/uL (130-400); RED BLOOD CELL COUNT 2.89 mill/uL (4.2-5.4); RED CELL DISTRIBUTION WIDTH 14.4 % (11.6-14.6)
[2019-08-10] MEDS: CARVEDILOL 12.5MG TABLET PO SCH ×2 (08:26→20:46)
[2019-08-10] MEDS: AMIODARONE HCL 200 MG TABLET PO SCH (08:26)
[2019-08-10] MEDS: DOCUSATE SODIUM 100MG CAPSULE PO SCH ×2 (08:26→18:06)
[2019-08-10] MEDS: FAMOTIDINE 20MG/2ML VIAL IV SCH (08:26)
[2019-08-10] MEDS: QUETIAPINE FUMARATE 25MG TABLET PO SCH ×2 (08:27→20:47)
[2019-08-10] MEDS: ALLOPURINOL 100 MG TABLET PO SCH (08:27)
[2019-08-10] MEDS: SENNOSIDES 8.6MG TABLET PO SCH (08:27)
[2019-08-10] MEDS: SPIRONOLACTONE 25MG TABLET PO SCH (08:27)
[2019-08-10] MEDS: ENOXAPARIN 30MG/0.3ML SYR SUBCUT SCH ×2 (08:28→20:48)
[2019-08-10] MEDS: HYDROMORPHONE HCL/PF 2MG/ML CPJ IV PRN (08:46)
[2019-08-10] MEDS: DEXT 5%/0.45% NACL 1000ML 1,000 ML IV SCH (10:14)
[2019-08-10] MEDS: EZETIMIBE 10MG TABLET PO SCH (12:37)
[2019-08-10] MEDS: DIGOXIN 125MCG TABLET PO SCH (18:06)
[2019-08-10] MEDS: MORPHINE SULFATE 2 MG/ML CPJ (NOT FOR IM USE) IV PRN (19:32)
[2019-08-11] VITALS (8 sets, daily range): BP systolic 110–162; BP diastolic 55–90
[2019-08-11] MEDS: IPRATROPIUM/ALBUTEROL 0.5-3(2.5)MG/3ML NEB HHN SCH ×4 (00:55→08:21)
[2019-08-11] MEDS: SEVELAMER CARBONATE 800 MG TABLET PO SCH ×2 (06:25→12:50)
[2019-08-11] MEDS: LEVOTHYROXINE SODIUM 50MCG TABLET PO SCH (06:25)
[2019-08-11] MEDS: MEROPENEM 500 MG in SODIUM CHLORIDE 0.9% 50 ML IV SCH ×2 (06:40→12:51)
[2019-08-11] MEDS: MORPHINE SULFATE 2 MG/ML CPJ (NOT FOR IM USE) IV PRN ×2 (06:41→11:48)
[2019-08-11 08:35] LABS: BASOPHILS % 0.6 % (0.0-2.0); EOSINOPHILS % 2.1 % (0.0-5.0); HEMATOCRIT. 29.7 % (36.0-48.0); HEMOGLOBIN. 9.8 g/dL (12.0-16.0); LYMPHOCYTES % 9.5 % (20.0-50.0); MEAN CORPUSCULAR HEMOGLOBIN 31.2 pg (28.0-32.0); MEAN CORPUSCULAR VOLUME 94.1 fL (81.0-99.0); MEAN PLATELET VOLUME 9.6 fl (7.4-10.4); MONOCYTES % 6.8 % (2.0-8.0); PLATELET 202 x1000/uL (130-400); RED BLOOD CELL COUNT 3.16 mill/uL (4.2-5.4); RED CELL DISTRIBUTION WIDTH 14.6 % (11.6-14.6)
[2019-08-11] MEDS: FAMOTIDINE 20MG/2ML VIAL IV SCH (09:36)
[2019-08-11] MEDS: EZETIMIBE 10MG TABLET PO SCH (09:36)
[2019-08-11] MEDS: ALLOPURINOL 100 MG TABLET PO SCH (09:36)
[2019-08-11] MEDS: SENNOSIDES 8.6MG TABLET PO SCH (09:37)
[2019-08-11] MEDS: DOCUSATE SODIUM 100MG CAPSULE PO SCH (09:37)
[2019-08-11] MEDS: QUETIAPINE FUMARATE 25MG TABLET PO SCH (09:39)
[2019-08-11] MEDS: CARVEDILOL 12.5MG TABLET PO SCH (09:39)
[2019-08-11] MEDS: SPIRONOLACTONE 25MG TABLET PO SCH (09:39)
[2019-08-11] MEDS: AMIODARONE HCL 200 MG TABLET PO SCH (09:39)
[2019-08-11] MEDS: ENOXAPARIN 30MG/0.3ML SYR SUBCUT SCH (09:41)
[2019-08-11] MEDS: DEXT 5%/0.45% NACL 1000ML 1,000 ML IV SCH (10:50)
== END 2019-08-11 15:20 | DRG 260 ==
LOC: ER 13:38 → EDBEDREQSVC 17:25 → EDBEDREQTM 17:25 → EDBEDREQ 17:25 → 3WST 17:28 → ENRESERV 19:40 → CVICU 08-05 07:17 → 3WST 08-09 19:04
PROVIDERS: ADMIT Internal Medicine Clinical Cardiac Electrophysiology; ATTEND Internal Medicine Clinical Cardiac Electrophysiology
PROC: 05HY33Z Insertion of Infusion Device into Upper Vein, Percutaneous Approach (ICD-10-PCS; 2019-08-04)
PROC: B54MZZA Ultrasonography of Right Upper Extremity Veins, Guidance (ICD-10-PCS; 2019-08-04)
PROC: B51MZZA Fluoroscopy of Right Upper Extremity Veins, Guidance (ICD-10-PCS; 2019-08-04)
PROC: 0JWT0PZ Revision of Cardiac Rhythm Related Device in Trunk Subcutaneous Tissue and Fascia, Open Approach (ICD-10-PCS; principal; 2019-08-05)
PROC: 0W9B30Z Drainage of Left Pleural Cavity with Drainage Device, Percutaneous Approach (ICD-10-PCS; 2019-08-05)
PROC: 02HN0JZ Insertion of Pacemaker Lead into Pericardium, Open Approach (ICD-10-PCS; 2019-08-05)
DX: T82.110A Breakdown (mechanical) of cardiac electrode, initial encounter (principal); I50.23 Acute on chronic systolic (congestive) heart failure; I49.01 Ventricular fibrillation; I13.0 Hypertensive heart and chronic kidney disease with heart failure and stage 1 through stage 4 chronic kidney disease, or unspecified chronic kidney disease; N17.9 Acute kidney failure, unspecified; I42.0 Dilated cardiomyopathy; I47.1 Supraventricular tachycardia; Z68.41 Body mass index [BMI] 40.0-44.9, adult; Z16.12 Extended spectrum beta lactamase (ESBL) resistance; N39.0 Urinary tract infection, site not specified; I48.19 Other persistent atrial fibrillation; T82.199A Other mechanical complication of unspecified cardiac device, initial encounter; D64.9 Anemia, unspecified; I25.10 Atherosclerotic heart disease of native coronary artery without angina pectoris; E66.01 Morbid (severe) obesity due to excess calories; I44.7 Left bundle-branch block, unspecified; N18.3 Chronic kidney disease, stage 3 (moderate); J20.9 Acute bronchitis, unspecified; J45.909 Unspecified asthma, uncomplicated; F41.9 Anxiety disorder, unspecified; M10.9 Gout, unspecified; E03.9 Hypothyroidism, unspecified; R26.9 Unspecified abnormalities of gait and mobility; Y83.8 Other surgical procedures as the cause of abnormal reaction of the patient, or of later complication, without mention of misadventure at the time of the procedure; Z20.828 Contact with and (suspected) exposure to other viral communicable diseases; E11.22 Type 2 diabetes mellitus with diabetic chronic kidney disease; Y71.2 Prosthetic and other implants, materials and accessory cardiovascular devices associated with adverse incidents; Z88.0 Allergy status to penicillin; Z95.810 Presence of automatic (implantable) cardiac defibrillator; Z79.84 Long term (current) use of oral hypoglycemic drugs; Z45.02 Encounter for adjustment and management of automatic implantable cardiac defibrillator; I25.2 Old myocardial infarction; Z79.82 Long term (current) use of aspirin; Z79.899 Other long term (current) drug therapy; Z86.79 Personal history of other diseases of the circulatory system; Y92.89 Other specified places as the place of occurrence of the external cause; Z93.0 Tracheostomy status; Z98.61 Coronary angioplasty status; Z72.0 Tobacco use
CPT/HCPCS: 36415; 36573; 36600; 71045; 71250; 76937; 80048; 80053; 80162; 80202; 81003; 82330; 82375; 82565; 82728; 82805; 82962; 83540; 83550; 83735; 83880; 84100; 84132; 84145; 84484; 84520; 85025; 86850; 86870; 86900; 86920; 87077; 87186; 93005; 93306; 93451; 94640; 96374; 97110; 97116; 97163; 97165; 97530; 97535; 99285; C1725; C1731; C1760; C1769; C1887; C1893; J0171; J1100; J1170; J1265; J1580; J1644; J1650; J1940; J1956; J2185; J2250; J2260; J2270; J2370; J2405; J2704; J2710; J2795; J3010; J3370; J3490; J7030; P9041; Q9967; U0003-CS

== ENCOUNTER 2019-08-11 15:20 | Inpatient (IN) | payer MEDICARE, MEDICAID ==
[~2019-08-11] VITALS: Ht 175.3 cm; Wt 136.5 kg
[2019-08-11 15:30] VITALS: BP 145/79
[2019-08-11 16:00] VITALS: BP 145/79
[2019-08-11] MEDS ORDERED: ONDANSETRON HCL 4MG TABLET PO PRN (17:00)
[2019-08-11] MEDS ORDERED: LORAZEPAM 2MG/ML CPJ IV PRN (17:00)
[2019-08-11] MEDS: DIGOXIN 125MCG TABLET PO SCH (18:22)
[2019-08-11] MEDS: SEVELAMER CARBONATE 800 MG TABLET PO SCH (18:22)
[2019-08-11] MEDS: DOCUSATE SODIUM 100MG CAPSULE PO SCH (18:22)
[2019-08-11] MEDS: MORPHINE SULFATE 2 MG/ML CPJ (NOT FOR IM USE) IV PRN ×2 (18:23→22:45)
[2019-08-11 20:00] VITALS: BP 123/41
[2019-08-11] MEDS ORDERED: ALBUTEROL (0.083%) 2.5MG/3ML NEB HHN SCH (20:00)
[2019-08-11] MEDS: IPRATROPIUM/ALBUTEROL 0.5-3(2.5)MG/3ML NEB HHN SCH (20:58)
[2019-08-11] MEDS: CARVEDILOL 12.5MG TABLET PO SCH (22:35)
[2019-08-11] MEDS: QUETIAPINE FUMARATE 25MG TABLET PO SCH (22:42)
[2019-08-11] MEDS: MEROPENEM 500 MG in SODIUM CHLORIDE 0.9% 50 ML IV SCH (22:42)
[2019-08-11] MEDS: ENOXAPARIN 30MG/0.3ML SYR SUBCUT SCH (22:46)
[2019-08-12] MEDS: IPRATROPIUM/ALBUTEROL 0.5-3(2.5)MG/3ML NEB HHN SCH ×5 (00:43→21:10)
[2019-08-12] MEDS: MEROPENEM 500 MG in SODIUM CHLORIDE 0.9% 50 ML IV SCH ×3 (05:13→20:58)
[2019-08-12] MEDS: LEVOTHYROXINE SODIUM 50MCG TABLET PO SCH (06:36)
[2019-08-12] MEDS: HYDROCODONE/ACETAMINOPHEN 5/325MG TABLET PO PRN ×4 (06:39→21:32)
[2019-08-12 08:06] VITALS: BP 123/43
[2019-08-12 08:46] LABS: BASOPHILS % 0.9 % (0.0-2.0); CHLORIDE 109 mEq/L (98-107); EOSINOPHILS % 2.3 % (0.0-5.0); HEMATOCRIT. 28.7 % (36.0-48.0); HEMOGLOBIN. 9.4 g/dL (12.0-16.0); LYMPHOCYTES % 11.7 % (20.0-50.0); MEAN CORPUSCULAR HEMOGLOBIN 30.7 pg (28.0-32.0); MEAN CORPUSCULAR VOLUME 93.8 fL (81.0-99.0); MEAN PLATELET VOLUME 9.6 fl (7.4-10.4); MONOCYTES % 8.2 % (2.0-8.0); NEUTROPHILS % 76.9 % (40.0-76.0); PLATELET 208 x1000/uL (130-400); RED BLOOD CELL COUNT 3.06 mill/uL (4.2-5.4); RED CELL DISTRIBUTION WIDTH 14.4 % (11.6-14.6)
[2019-08-12] MEDS ORDERED: FAMOTIDINE 20MG TABLET PO SCH (09:00)
[2019-08-12] MEDS: SEVELAMER CARBONATE 800 MG TABLET PO SCH ×3 (09:30→17:25)
[2019-08-12] MEDS: QUETIAPINE FUMARATE 25MG TABLET PO SCH ×2 (09:31→20:58)
[2019-08-12] MEDS: DOCUSATE SODIUM 100MG CAPSULE PO SCH ×2 (09:31→17:25)
[2019-08-12] MEDS: ASPIRIN 325MG EC TABLET PO SCH (09:31)
[2019-08-12] MEDS: CARVEDILOL 12.5MG TABLET PO SCH ×2 (09:31→20:58)
[2019-08-12] MEDS: AMIODARONE HCL 200 MG TABLET PO SCH (09:32)
[2019-08-12] MEDS: ALLOPURINOL 100 MG TABLET PO SCH (09:32)
[2019-08-12] MEDS: EZETIMIBE 10MG TABLET PO SCH (09:32)
[2019-08-12] MEDS: SPIRONOLACTONE 25MG TABLET PO SCH (09:32)
[2019-08-12] MEDS: SENNOSIDES 8.6MG TABLET PO SCH (09:32)
[2019-08-12] MEDS: ENOXAPARIN 30MG/0.3ML SYR SUBCUT SCH ×2 (09:38→20:59)
[2019-08-12 11:20] VITALS: BP 138/68
[2019-08-12 17:15] VITALS: BP 130/72
[2019-08-12] MEDS: DIGOXIN 125MCG TABLET PO SCH (17:25)
[2019-08-12 20:46] VITALS: BP 133/67
[2019-08-12] MEDS: FAMOTIDINE 20MG TABLET PO SCH (20:58)
[2019-08-12 21:15] LABS: CLARITY URINE CLEAR (CLEAR); COLOR URINE YELLOW (YELLOW); KETONES URINE TRACE (NEGATIVE); LEUKOCYTE ESTERASE URINE NEGATIVE (NEGATIVE); NITRITE URINE NEGATIVE (NEGATIVE); OCCULT BLOOD URINE NEGATIVE (NEGATIVE); PH URINE 5.5 (4.5-8.0); PROTEIN URINE NEGATIVE (NEGATIVE); SPECIFIC GRAVITY URINE 1.025 (1.005-1.030); UROBILINOGEN URINE 0.2 E.U./dL (0.2-1.0)
[2019-08-13] MEDS: IPRATROPIUM/ALBUTEROL 0.5-3(2.5)MG/3ML NEB HHN SCH ×6 (00:35→20:17)
[2019-08-13] MEDS: MEROPENEM 500 MG in SODIUM CHLORIDE 0.9% 50 ML IV SCH ×3 (05:48→21:17)
[2019-08-13] MEDS: HYDROCODONE/ACETAMINOPHEN 5/325MG TABLET PO PRN ×3 (05:49→13:59)
[2019-08-13] MEDS: LEVOTHYROXINE SODIUM 50MCG TABLET PO SCH (06:17)
[2019-08-13 08:00] VITALS: BP 114/59
[2019-08-13] MEDS: SEVELAMER CARBONATE 800 MG TABLET PO SCH ×3 (08:57→17:12)
[2019-08-13] MEDS: ALLOPURINOL 100 MG TABLET PO SCH (08:57)
[2019-08-13] MEDS: QUETIAPINE FUMARATE 25MG TABLET PO SCH ×2 (08:57→21:18)
[2019-08-13] MEDS: DOCUSATE SODIUM 100MG CAPSULE PO SCH ×2 (08:57→17:12)
[2019-08-13] MEDS: SENNOSIDES 8.6MG TABLET PO SCH (08:57)
[2019-08-13] MEDS: EZETIMIBE 10MG TABLET PO SCH (08:57)
[2019-08-13] MEDS: AMIODARONE HCL 200 MG TABLET PO SCH (08:58)
[2019-08-13] MEDS: SPIRONOLACTONE 25MG TABLET PO SCH (08:58)
[2019-08-13] MEDS: ASPIRIN 325MG EC TABLET PO SCH (08:58)
[2019-08-13] MEDS: ENOXAPARIN 30MG/0.3ML SYR SUBCUT SCH ×2 (08:58→21:18)
[2019-08-13] MEDS: CARVEDILOL 12.5MG TABLET PO SCH ×2 (09:00→21:18)
[2019-08-13] MEDS: FAMOTIDINE 20MG TABLET PO SCH ×2 (09:00→21:18)
[2019-08-13] MEDS: DIGOXIN 125MCG TABLET PO SCH (18:14)
[2019-08-14] MEDS: IPRATROPIUM/ALBUTEROL 0.5-3(2.5)MG/3ML NEB HHN SCH ×6 (00:18→20:58)
[2019-08-14] MEDS: MEROPENEM 500 MG in SODIUM CHLORIDE 0.9% 50 ML IV SCH ×2 (04:23→12:44)
[2019-08-14] MEDS: LEVOTHYROXINE SODIUM 50MCG TABLET PO SCH (06:48)
[2019-08-14 07:26] LABS: BASOPHILS % 0.7 % (0.0-2.0); EOSINOPHILS % 2.8 % (0.0-5.0); HEMATOCRIT. 27.7 % (36.0-48.0); LYMPHOCYTES % 11.9 % (20.0-50.0); MEAN CORPUSCULAR HEMOGLOBIN 30.8 pg (28.0-32.0); MEAN CORPUSCULAR VOLUME 94.4 fL (81.0-99.0); MEAN PLATELET VOLUME 9.8 fl (7.4-10.4); MONOCYTES % 8.6 % (2.0-8.0); PLATELET 217 x1000/uL (130-400); RED BLOOD CELL COUNT 2.93 mill/uL (4.2-5.4); RED CELL DISTRIBUTION WIDTH 14.7 % (11.6-14.6)
[2019-08-14 07:52] LABS: PHOSPHORUS 3.5 mg/dL (2.5-4.9)
[2019-08-14 08:12] LABS: FOLIC ACID (FOLATE) SERUM 9.7 ng/mL (>5.38)
[2019-08-14 08:30] VITALS: BP 125/54
[2019-08-14] MEDS: SEVELAMER CARBONATE 800 MG TABLET PO SCH ×3 (08:38→17:36)
[2019-08-14] MEDS: FAMOTIDINE 20MG TABLET PO SCH ×2 (08:38→20:46)
[2019-08-14] MEDS: QUETIAPINE FUMARATE 25MG TABLET PO SCH ×2 (08:38→20:46)
[2019-08-14] MEDS: ASPIRIN 325MG EC TABLET PO SCH (08:38)
[2019-08-14] MEDS: EZETIMIBE 10MG TABLET PO SCH (08:39)
[2019-08-14] MEDS: SPIRONOLACTONE 25MG TABLET PO SCH (08:39)
[2019-08-14] MEDS: AMIODARONE HCL 200 MG TABLET PO SCH (08:39)
[2019-08-14] MEDS: CARVEDILOL 12.5MG TABLET PO SCH ×2 (08:39→20:49)
[2019-08-14] MEDS: DOCUSATE SODIUM 100MG CAPSULE PO SCH ×2 (08:40→17:36)
[2019-08-14] MEDS: ENOXAPARIN 30MG/0.3ML SYR SUBCUT SCH ×2 (08:40→20:52)
[2019-08-14] MEDS: ALLOPURINOL 100 MG TABLET PO SCH (08:40)
[2019-08-14] MEDS: SENNOSIDES 8.6MG TABLET PO SCH (08:40)
[2019-08-14] MEDS: HYDROCODONE/ACETAMINOPHEN 5/325MG TABLET PO PRN ×2 (08:56→18:07)
[2019-08-14] MEDS: FERROUS SULFATE 325MG TABLET PO SCH (17:36)
[2019-08-14] MEDS: DIGOXIN 125MCG TABLET PO SCH (17:36)
[2019-08-14 20:00] VITALS: BP 147/73
[2019-08-14] MEDS: IRON SUCROSE COMPLEX 200 MG in SODIUM CHLORIDE 0.9% 100 ML IV SCH (20:49)
[2019-08-14] MEDS: ACETAMINOPHEN 325MG TABLET PO PRN (21:29)
[2019-08-15] MEDS: IPRATROPIUM/ALBUTEROL 0.5-3(2.5)MG/3ML NEB HHN SCH ×6 (00:09→21:15)
[2019-08-15] MEDS: LEVOTHYROXINE SODIUM 50MCG TABLET PO SCH (06:08)
[2019-08-15 07:56] VITALS: BP 143/50
[2019-08-15] MEDS: FERROUS SULFATE 325MG TABLET PO SCH ×2 (09:00→17:00)
[2019-08-15] MEDS ORDERED: SIMETHICONE 80MG TABLET CHEW PO SCH (09:00)
[2019-08-15] MEDS ORDERED: CALCIUM CARBONATE 500MG TABLET CHEW PO SCH (09:00)
[2019-08-15] MEDS: ENOXAPARIN 30MG/0.3ML SYR SUBCUT SCH ×2 (09:11→22:39)
[2019-08-15] MEDS: OMEPRAZOLE 20MG CAPSULE EXTENDED RELEASE PO SCH (09:12)
[2019-08-15] MEDS: CARVEDILOL 12.5MG TABLET PO SCH ×2 (09:12→22:37)
[2019-08-15] MEDS: SEVELAMER CARBONATE 800 MG TABLET PO SCH ×3 (09:12→16:11)
[2019-08-15] MEDS: QUETIAPINE FUMARATE 25MG TABLET PO SCH ×2 (09:12→22:37)
[2019-08-15] MEDS: FAMOTIDINE 20MG TABLET PO SCH ×2 (09:12→22:37)
[2019-08-15] MEDS: ASPIRIN 325MG EC TABLET PO SCH (09:12)
[2019-08-15] MEDS: SENNOSIDES 8.6MG TABLET PO SCH (09:13)
[2019-08-15] MEDS: DOCUSATE SODIUM 100MG CAPSULE PO SCH ×2 (09:13→16:11)
[2019-08-15] MEDS: SPIRONOLACTONE 25MG TABLET PO SCH (09:13)
[2019-08-15] MEDS: EZETIMIBE 10MG TABLET PO SCH (09:13)
[2019-08-15] MEDS: AMIODARONE HCL 200 MG TABLET PO SCH (09:13)
[2019-08-15] MEDS: ALLOPURINOL 100 MG TABLET PO SCH (09:13)
[2019-08-15] MEDS ORDERED: BISACODYL 5MG TABLET PO PRN (09:45)
[2019-08-15] MEDS: LACTULOSE 20G/30ML UDC PO PRN (09:48)
[2019-08-15] MEDS: HYDROCODONE/ACETAMINOPHEN 5/325MG TABLET PO PRN ×2 (09:48→16:12)
[2019-08-15] MEDS ORDERED: LACTULOSE 20G/30ML UDC PO SCH (12:00)
[2019-08-15 12:01] LABS: T4 FREE 1.56 ng/dL (0.76-1.46)
[2019-08-15 12:29] LABS: HEMATOCRIT. 27.5 % (36.0-48.0); HEMOGLOBIN. 9.1 g/dL (12.0-16.0); LYMPHOCYTES % 8.2 % (20.0-50.0); MEAN CORPUSCULAR HEMOGLOBIN 31.2 pg (28.0-32.0); MEAN CORPUSCULAR VOLUME 93.7 fL (81.0-99.0); MEAN PLATELET VOLUME 9.4 fl (7.4-10.4); MONOCYTES % 7.4 % (2.0-8.0); NEUTROPHILS % 80.4 % (40.0-76.0); PLATELET 217 x1000/uL (130-400); RED BLOOD CELL COUNT 2.93 mill/uL (4.2-5.4); RED CELL DISTRIBUTION WIDTH 14.5 % (11.6-14.6)
[2019-08-15] MEDS ORDERED: DEXT 5%/0.45% NACL 1000ML 1,000 ML IV ONE (13:45)
[2019-08-15 14:33] LABS: CREATINE KINASE 140 IU/L (26-192)
[2019-08-15] MEDS: DIGOXIN 125MCG TABLET PO SCH (17:22)
[2019-08-15 20:00] VITALS: BP 140/60
[2019-08-15] MEDS: IRON SUCROSE COMPLEX 200 MG in SODIUM CHLORIDE 0.9% 100 ML IV SCH (22:38)
[2019-08-15] MEDS: ACETAMINOPHEN 325MG TABLET PO PRN (23:01)
[2019-08-16] MEDS: OMEPRAZOLE 20MG CAPSULE EXTENDED RELEASE PO SCH (06:17)
[2019-08-16] MEDS: LEVOTHYROXINE SODIUM 50MCG TABLET PO SCH (06:18)
[2019-08-16 08:00] VITALS: BP 134/62
[2019-08-16] MEDS: IPRATROPIUM/ALBUTEROL 0.5-3(2.5)MG/3ML NEB HHN SCH ×2 (08:15→16:26)
[2019-08-16] MEDS ORDERED: FUROSEMIDE 40MG TABLET PO SCH (09:00)
[2019-08-16] MEDS: EZETIMIBE 10MG TABLET PO SCH (09:44)
[2019-08-16] MEDS: QUETIAPINE FUMARATE 25MG TABLET PO SCH ×2 (09:45→22:04)
[2019-08-16] MEDS: ALLOPURINOL 100 MG TABLET PO SCH (09:45)
[2019-08-16] MEDS: FAMOTIDINE 20MG TABLET PO SCH ×2 (09:45→22:03)
[2019-08-16] MEDS: CARVEDILOL 12.5MG TABLET PO SCH ×2 (09:45→22:03)
[2019-08-16] MEDS: SEVELAMER CARBONATE 800 MG TABLET PO SCH (09:45)
[2019-08-16] MEDS: AMIODARONE HCL 200 MG TABLET PO SCH (09:45)
[2019-08-16] MEDS: DOCUSATE SODIUM 100MG CAPSULE PO SCH ×2 (09:46→17:25)
[2019-08-16] MEDS: SENNOSIDES 8.6MG TABLET PO SCH (09:46)
[2019-08-16] MEDS: SPIRONOLACTONE 25MG TABLET PO SCH (09:46)
[2019-08-16] MEDS: ASPIRIN 325MG EC TABLET PO SCH (09:46)
[2019-08-16] MEDS: FERROUS SULFATE 325MG TABLET PO SCH ×2 (09:47→17:25)
[2019-08-16] MEDS: ENOXAPARIN 30MG/0.3ML SYR SUBCUT SCH ×2 (09:48→22:04)
[2019-08-16] MEDS: HYDROCODONE/ACETAMINOPHEN 5/325MG TABLET PO PRN (10:03)
[2019-08-16] MEDS: DIGOXIN 125MCG TABLET PO SCH (17:25)
[2019-08-16 20:00] VITALS: BP 139/78
[2019-08-16 21:10] LABS: BASOPHILS % 0.7 % (0.0-2.0); EOSINOPHILS % 1.6 % (0.0-5.0); HEMATOCRIT. 32.6 % (36.0-48.0); HEMOGLOBIN. 10.5 g/dL (12.0-16.0); LYMPHOCYTES % 9.6 % (20.0-50.0); MEAN CORPUSCULAR HEMOGLOBIN 30.9 pg (28.0-32.0); MEAN CORPUSCULAR VOLUME 95.7 fL (81.0-99.0); MEAN PLATELET VOLUME 9.8 fl (7.4-10.4); MONOCYTES % 11.3 % (2.0-8.0); NEUTROPHILS % 76.8 % (40.0-76.0); PLATELET 193 x1000/uL (130-400); RED BLOOD CELL COUNT 3.41 mill/uL (4.2-5.4); RED CELL DISTRIBUTION WIDTH 14.9 % (11.6-14.6)
[2019-08-16 21:41] LABS: DIGOXIN 1.3 ng/mL (0.9-2.0)
[2019-08-17] MEDS: OMEPRAZOLE 20MG CAPSULE EXTENDED RELEASE PO SCH (06:06)
[2019-08-17] MEDS: LEVOTHYROXINE SODIUM 50MCG TABLET PO SCH (06:07)
[2019-08-17] MEDS: IPRATROPIUM/ALBUTEROL 0.5-3(2.5)MG/3ML NEB HHN SCH ×4 (07:41→20:56)
[2019-08-17 08:00] VITALS: BP 127/58
[2019-08-17] MEDS: EZETIMIBE 10MG TABLET PO SCH (08:59)
[2019-08-17] MEDS: ALLOPURINOL 100 MG TABLET PO SCH (08:59)
[2019-08-17] MEDS: ASPIRIN 325MG EC TABLET PO SCH (08:59)
[2019-08-17] MEDS: ACETAMINOPHEN 325MG TABLET PO PRN (08:59)
[2019-08-17] MEDS: SENNOSIDES 8.6MG TABLET PO SCH (08:59)
[2019-08-17] MEDS: FUROSEMIDE 20MG TABLET PO SCH (08:59)
[2019-08-17] MEDS: QUETIAPINE FUMARATE 25MG TABLET PO SCH ×2 (08:59→20:53)
[2019-08-17] MEDS: FERROUS SULFATE 325MG TABLET PO SCH ×2 (08:59→17:40)
[2019-08-17] MEDS: DOCUSATE SODIUM 100MG CAPSULE PO SCH ×2 (08:59→17:39)
[2019-08-17] MEDS: AMIODARONE HCL 200 MG TABLET PO SCH (09:00)
[2019-08-17] MEDS ORDERED: METOLAZONE 2.5MG TABLET PO SCH (09:00)
[2019-08-17] MEDS: FAMOTIDINE 20MG TABLET PO SCH ×2 (09:00→20:52)
[2019-08-17] MEDS: CARVEDILOL 12.5MG TABLET PO SCH ×2 (09:02→20:52)
[2019-08-17] MEDS: ENOXAPARIN 30MG/0.3ML SYR SUBCUT SCH ×2 (09:02→20:53)
[2019-08-17] MEDS: DIGOXIN 125MCG TABLET PO SCH (17:39)
[2019-08-17 17:46] LABS: BASOPHILS % 0.5 % (0.0-2.0); EOSINOPHILS % 2.2 % (0.0-5.0); HEMATOCRIT. 28.3 % (36.0-48.0); HEMOGLOBIN. 9.6 g/dL (12.0-16.0); LYMPHOCYTES % 9.4 % (20.0-50.0); MEAN CORPUSCULAR HEMOGLOBIN 31.4 pg (28.0-32.0); MEAN CORPUSCULAR VOLUME 92.3 fL (81.0-99.0); MEAN PLATELET VOLUME 10.5 fl (7.4-10.4); MONOCYTES % 9.4 % (2.0-8.0); NEUTROPHILS % 78.5 % (40.0-76.0); PLATELET 181 x1000/uL (130-400); RED BLOOD CELL COUNT 3.06 mill/uL (4.2-5.4); RED CELL DISTRIBUTION WIDTH 14.8 % (11.6-14.6)
[2019-08-17 17:53] LABS: PHOSPHORUS 3.4 mg/dL (2.5-4.9)
[2019-08-17] MEDS: LACTULOSE 20G/30ML UDC PO PRN (18:13)
[2019-08-17 20:00] VITALS: BP 145/58
[2019-08-18] VITALS: BP 133/66
[2019-08-18] MEDS: ACETAMINOPHEN 325MG TABLET PO PRN (01:29)
[2019-08-18] MEDS: IPRATROPIUM/ALBUTEROL 0.5-3(2.5)MG/3ML NEB HHN SCH ×6 (04:00→23:00)
[2019-08-18 06:11] LABS: 25-HYDROXY VITAMIN D3 22 ng/mL (.)
[2019-08-18] MEDS: LEVOTHYROXINE SODIUM 50MCG TABLET PO SCH (06:11)
[2019-08-18 08:09] VITALS: BP 149/47
[2019-08-18 08:35] LABS: T4 FREE 1.57 ng/dL (0.76-1.46)
[2019-08-18 08:48] LABS: BASOPHILS % 0.2 % (0.0-2.0); EOSINOPHILS % 1.9 % (0.0-5.0); HEMATOCRIT. 27.6 % (36.0-48.0); LYMPHOCYTES % 11.2 % (20.0-50.0); MEAN CORPUSCULAR HEMOGLOBIN 30.5 pg (28.0-32.0); MEAN CORPUSCULAR VOLUME 93.9 fL (81.0-99.0); MEAN PLATELET VOLUME 9.8 fl (7.4-10.4); MONOCYTES % 8.8 % (2.0-8.0); NEUTROPHILS % 77.9 % (40.0-76.0); PLATELET 214 x1000/uL (130-400); RED BLOOD CELL COUNT 2.94 mill/uL (4.2-5.4); RED CELL DISTRIBUTION WIDTH 14.8 % (11.6-14.6)
[2019-08-18] MEDS: ASPIRIN 325MG EC TABLET PO SCH (09:01)
[2019-08-18] MEDS: AMIODARONE HCL 200 MG TABLET PO SCH (09:01)
[2019-08-18] MEDS: SENNOSIDES 8.6MG TABLET PO SCH (09:01)
[2019-08-18] MEDS: FERROUS SULFATE 325MG TABLET PO SCH ×2 (09:01→16:35)
[2019-08-18] MEDS: QUETIAPINE FUMARATE 25MG TABLET PO SCH ×2 (09:01→20:58)
[2019-08-18] MEDS: EZETIMIBE 10MG TABLET PO SCH (09:01)
[2019-08-18] MEDS: FAMOTIDINE 20MG TABLET PO SCH ×2 (09:01→20:58)
[2019-08-18] MEDS: DOCUSATE SODIUM 100MG CAPSULE PO SCH ×2 (09:02→16:35)
[2019-08-18] MEDS: FUROSEMIDE 20MG TABLET PO SCH (09:02)
[2019-08-18] MEDS: CARVEDILOL 12.5MG TABLET PO SCH ×2 (09:02→20:58)
[2019-08-18] MEDS: ENOXAPARIN 30MG/0.3ML SYR SUBCUT SCH ×2 (09:03→20:59)
[2019-08-18] MEDS: ALLOPURINOL 100 MG TABLET PO SCH (09:03)
[2019-08-18] MEDS: AMLODIPINE 2.5MG TABLET PO SCH ×2 (10:26→20:59)
[2019-08-18] MEDS: HYDROCODONE/ACETAMINOPHEN 5/325MG TABLET PO PRN (13:02)
[2019-08-18] MEDS ORDERED: ERGOCALCIFEROL 50000UNITS CAPSULE PO SCH (15:00)
[2019-08-18] MEDS: DIGOXIN 125MCG TABLET PO SCH (17:40)
[2019-08-18] MEDS: LACTULOSE 20G/30ML UDC PO PRN (18:50)
[2019-08-18 20:00] VITALS: BP 139/79
[2019-08-19] MEDS: IPRATROPIUM/ALBUTEROL 0.5-3(2.5)MG/3ML NEB HHN SCH ×4 (02:12→19:40)
[2019-08-19] MEDS: LEVOTHYROXINE SODIUM 50MCG TABLET PO SCH (06:02)
[2019-08-19 08:21] VITALS: BP 122/47
[2019-08-19] MEDS: FERROUS SULFATE 325MG TABLET PO SCH ×2 (09:26→18:35)
[2019-08-19] MEDS: AMIODARONE HCL 200 MG TABLET PO SCH (09:27)
[2019-08-19] MEDS: EZETIMIBE 10MG TABLET PO SCH (09:27)
[2019-08-19] MEDS: DOCUSATE SODIUM 100MG CAPSULE PO SCH ×2 (09:28→18:35)
[2019-08-19] MEDS: QUETIAPINE FUMARATE 25MG TABLET PO SCH ×2 (09:28→21:39)
[2019-08-19] MEDS: SENNOSIDES 8.6MG TABLET PO SCH (09:28)
[2019-08-19] MEDS: ASPIRIN 325MG EC TABLET PO SCH (09:28)
[2019-08-19] MEDS: CARVEDILOL 12.5MG TABLET PO SCH ×2 (09:28→21:38)
[2019-08-19] MEDS: ALLOPURINOL 100 MG TABLET PO SCH (09:28)
[2019-08-19] MEDS: FAMOTIDINE 20MG TABLET PO SCH ×2 (09:28→21:38)
[2019-08-19] MEDS: FUROSEMIDE 20MG TABLET PO SCH (09:28)
[2019-08-19] MEDS: AMLODIPINE 2.5MG TABLET PO SCH ×2 (09:29→21:39)
[2019-08-19] MEDS: ENOXAPARIN 30MG/0.3ML SYR SUBCUT SCH ×2 (09:29→21:37)
[2019-08-19 10:51] LABS: BASOPHILS % 0.5 % (0.0-2.0); EOSINOPHILS % 2.3 % (0.0-5.0); HEMOGLOBIN. 9.8 g/dL (12.0-16.0); LYMPHOCYTES % 11.5 % (20.0-50.0); MEAN CORPUSCULAR HEMOGLOBIN 31.7 pg (28.0-32.0); MEAN CORPUSCULAR VOLUME 93.6 fL (81.0-99.0); MEAN PLATELET VOLUME 10.4 fl (7.4-10.4); MONOCYTES % 6.7 % (2.0-8.0); PLATELET 218 x1000/uL (130-400); RED CELL DISTRIBUTION WIDTH 14.9 % (11.6-14.6)
[2019-08-19] MEDS: DIGOXIN 125MCG TABLET PO SCH (18:36)
[2019-08-19 20:00] VITALS: BP 130/58
[2019-08-20] MEDS: HYDROCODONE/ACETAMINOPHEN 5/325MG TABLET PO PRN (00:06)
[2019-08-20] MEDS: IPRATROPIUM/ALBUTEROL 0.5-3(2.5)MG/3ML NEB HHN SCH ×6 (01:35→17:00)
[2019-08-20] MEDS: LEVOTHYROXINE SODIUM 50MCG TABLET PO SCH (06:54)
[2019-08-20 08:00] VITALS: BP 130/44
[2019-08-20] MEDS: FUROSEMIDE 20MG TABLET PO SCH (08:20)
[2019-08-20] MEDS: ENOXAPARIN 30MG/0.3ML SYR SUBCUT SCH ×2 (08:20→20:47)
[2019-08-20] MEDS: ASPIRIN 325MG EC TABLET PO SCH (08:20)
[2019-08-20] MEDS: ALLOPURINOL 100 MG TABLET PO SCH (08:21)
[2019-08-20] MEDS: FERROUS SULFATE 325MG TABLET PO SCH ×2 (08:21→17:40)
[2019-08-20] MEDS: FAMOTIDINE 20MG TABLET PO SCH ×2 (08:21→20:45)
[2019-08-20] MEDS: DOCUSATE SODIUM 100MG CAPSULE PO SCH ×2 (08:21→17:40)
[2019-08-20] MEDS: EZETIMIBE 10MG TABLET PO SCH (08:21)
[2019-08-20] MEDS: SENNOSIDES 8.6MG TABLET PO SCH (08:21)
[2019-08-20] MEDS: CARVEDILOL 12.5MG TABLET PO SCH ×2 (08:22→20:45)
[2019-08-20] MEDS: AMIODARONE HCL 200 MG TABLET PO SCH (08:23)
[2019-08-20] MEDS: AMLODIPINE 2.5MG TABLET PO SCH ×2 (08:23→20:45)
[2019-08-20] MEDS: QUETIAPINE FUMARATE 25MG TABLET PO SCH ×2 (08:28→20:45)
[2019-08-20] MEDS: ACETAMINOPHEN 325MG TABLET PO PRN (08:32)
[2019-08-20] MEDS ORDERED: FURO20TA4 PO (14:34)
[2019-08-20] MEDS ORDERED: FERR325T23 PO (14:34)
[2019-08-20] MEDS ORDERED: ASPI325T85 PO (14:34)
[2019-08-20] MEDS ORDERED: QUET25TA PO (14:34)
[2019-08-20] MEDS ORDERED: DIGO125T20 PO (14:34)
[2019-08-20] MEDS ORDERED: SIMV10TA97 PO (14:34)
[2019-08-20] MEDS ORDERED: LEVO50TA8 PO (14:34)
[2019-08-20] MEDS ORDERED: SENN-22 PO (14:34)
[2019-08-20] MEDS ORDERED: EZET10TA13 PO (14:34)
[2019-08-20] MEDS ORDERED: COR12 PO (14:34)
[2019-08-20] MEDS ORDERED: OMEP20CA14 PO (14:34)
[2019-08-20] MEDS ORDERED: AMI2 PO (14:34)
[2019-08-20] MEDS: DIGOXIN 125MCG TABLET PO SCH (17:40)
[2019-08-20 20:00] VITALS: BP 141/70
[2019-08-21] MEDS: IPRATROPIUM/ALBUTEROL 0.5-3(2.5)MG/3ML NEB HHN SCH ×5 (00:11→21:11)
[2019-08-21] MEDS: HYDROCODONE/ACETAMINOPHEN 5/325MG TABLET PO PRN ×2 (01:28→22:43)
[2019-08-21] MEDS: LEVOTHYROXINE SODIUM 50MCG TABLET PO SCH (06:37)
[2019-08-21 08:00] VITALS: BP 96/43
[2019-08-21] MEDS: AMLODIPINE 2.5MG TABLET PO SCH ×2 (09:00→21:49)
[2019-08-21] MEDS: CARVEDILOL 12.5MG TABLET PO SCH ×2 (09:00→21:53)
[2019-08-21] MEDS: SENNOSIDES 8.6MG TABLET PO SCH (09:37)
[2019-08-21] MEDS: ALLOPURINOL 100 MG TABLET PO SCH (09:37)
[2019-08-21] MEDS: FAMOTIDINE 20MG TABLET PO SCH ×2 (09:37→21:48)
[2019-08-21] MEDS: EZETIMIBE 10MG TABLET PO SCH (09:37)
[2019-08-21] MEDS: FERROUS SULFATE 325MG TABLET PO SCH ×2 (09:37→16:54)
[2019-08-21] MEDS: ENOXAPARIN 30MG/0.3ML SYR SUBCUT SCH ×2 (09:37→21:49)
[2019-08-21] MEDS: ASPIRIN 325MG EC TABLET PO SCH (09:37)
[2019-08-21] MEDS: DOCUSATE SODIUM 100MG CAPSULE PO SCH ×2 (09:38→16:54)
[2019-08-21] MEDS: AMIODARONE HCL 200 MG TABLET PO SCH (09:38)
[2019-08-21] MEDS: FUROSEMIDE 20MG TABLET PO SCH (09:38)
[2019-08-21] MEDS: QUETIAPINE FUMARATE 25MG TABLET PO SCH ×2 (09:38→21:48)
[2019-08-21 13:01] LABS: EOSINOPHILS % 2.5 % (0.0-5.0); HEMATOCRIT. 29.3 % (36.0-48.0); HEMOGLOBIN. 9.6 g/dL (12.0-16.0); LYMPHOCYTES % 14.1 % (20.0-50.0); MEAN CORPUSCULAR HEMOGLOBIN 30.8 pg (28.0-32.0); MEAN CORPUSCULAR VOLUME 94.3 fL (81.0-99.0); MEAN PLATELET VOLUME 10.3 fl (7.4-10.4); MONOCYTES % 8.2 % (2.0-8.0); NEUTROPHILS % 74.2 % (40.0-76.0); PLATELET 233 x1000/uL (130-400); RED BLOOD CELL COUNT 3.11 mill/uL (4.2-5.4); RED CELL DISTRIBUTION WIDTH 15.3 % (11.6-14.6)
[2019-08-21] MEDS: DIGOXIN 125MCG TABLET PO SCH (16:58)
[2019-08-21] MEDS: LACTULOSE 20G/30ML UDC PO PRN (17:12)
[2019-08-21 20:00] VITALS: BP 131/50
[2019-08-21] MEDS: ACETAMINOPHEN 325MG TABLET PO PRN (20:23)
[2019-08-22] MEDS: IPRATROPIUM/ALBUTEROL 0.5-3(2.5)MG/3ML NEB HHN SCH ×3 (00:38→09:23)
[2019-08-22] MEDS: LEVOTHYROXINE SODIUM 50MCG TABLET PO SCH (06:12)
[2019-08-22 08:18] VITALS: BP 139/46
[2019-08-22] MEDS: ASPIRIN 325MG EC TABLET PO SCH (08:55)
[2019-08-22] MEDS: DOCUSATE SODIUM 100MG CAPSULE PO SCH (08:55)
[2019-08-22] MEDS: FAMOTIDINE 20MG TABLET PO SCH (08:55)
[2019-08-22] MEDS: FUROSEMIDE 20MG TABLET PO SCH (08:55)
[2019-08-22] MEDS: FERROUS SULFATE 325MG TABLET PO SCH (08:55)
[2019-08-22] MEDS: EZETIMIBE 10MG TABLET PO SCH (08:55)
[2019-08-22] MEDS: SENNOSIDES 8.6MG TABLET PO SCH (08:55)
[2019-08-22] MEDS: ENOXAPARIN 30MG/0.3ML SYR SUBCUT SCH (08:55)
[2019-08-22] MEDS: QUETIAPINE FUMARATE 25MG TABLET PO SCH (08:55)
[2019-08-22] MEDS: AMIODARONE HCL 200 MG TABLET PO SCH (08:56)
[2019-08-22] MEDS: CARVEDILOL 12.5MG TABLET PO SCH (08:56)
[2019-08-22] MEDS: ALLOPURINOL 100 MG TABLET PO SCH (08:56)
[2019-08-22] MEDS: AMLODIPINE 2.5MG TABLET PO SCH (08:56)
[2019-08-22 11:16] VITALS: BP 139/46
== END 2019-08-22 13:00 | disposition home health service (06) | DRG 947 ==
PROVIDERS: ADMIT Physical Medicine & Rehabilitation Spinal Cord Injury Medicine; ATTEND Internal Medicine
DX: R53.81 Other malaise (principal); N17.0 Acute kidney failure with tubular necrosis; I50.23 Acute on chronic systolic (congestive) heart failure; Z68.41 Body mass index [BMI] 40.0-44.9, adult; N39.0 Urinary tract infection, site not specified; Z16.12 Extended spectrum beta lactamase (ESBL) resistance; I47.1 Supraventricular tachycardia; I42.0 Dilated cardiomyopathy; I13.0 Hypertensive heart and chronic kidney disease with heart failure and stage 1 through stage 4 chronic kidney disease, or unspecified chronic kidney disease; I11.0 Hypertensive heart disease with heart failure; B96.20 Unspecified Escherichia coli [E. coli] as the cause of diseases classified elsewhere; D50.9 Iron deficiency anemia, unspecified; E03.9 Hypothyroidism, unspecified; E66.01 Morbid (severe) obesity due to excess calories; E78.5 Hyperlipidemia, unspecified; I25.10 Atherosclerotic heart disease of native coronary artery without angina pectoris; I48.91 Unspecified atrial fibrillation; J45.909 Unspecified asthma, uncomplicated; E05.90 Thyrotoxicosis, unspecified without thyrotoxic crisis or storm; E55.9 Vitamin D deficiency, unspecified; E78.00 Pure hypercholesterolemia, unspecified; G47.33 Obstructive sleep apnea (adult) (pediatric); K46.9 Unspecified abdominal hernia without obstruction or gangrene; M19.90 Unspecified osteoarthritis, unspecified site; R26.9 Unspecified abnormalities of gait and mobility; G47.30 Sleep apnea, unspecified; M10.9 Gout, unspecified; N18.3 Chronic kidney disease, stage 3 (moderate); R73.9 Hyperglycemia, unspecified; R94.6 Abnormal results of thyroid function studies; R34 Anuria and oliguria; I34.0 Nonrheumatic mitral (valve) insufficiency; I27.21 Secondary pulmonary arterial hypertension; Z82.49 Family history of ischemic heart disease and other diseases of the circulatory system; Z87.440 Personal history of urinary (tract) infections; I25.2 Old myocardial infarction; Z86.74 Personal history of sudden cardiac arrest; Z95.810 Presence of automatic (implantable) cardiac defibrillator; Z98.61 Coronary angioplasty status; Z88.0 Allergy status to penicillin; Z79.899 Other long term (current) drug therapy; Z79.82 Long term (current) use of aspirin
CPT/HCPCS: 36415; 80048; 80053; 80162; 81003; 82306; 82533; 82550; 82570; 82607; 82728; 82746; 83540; 83550; 83735; 84100; 84134; 84300; 84439; 84443; 84481; 85025; 86376; 92523; 93970; 94640; 97110; 97112; 97116; 97162; 97166; 97530; 97535; J1650; J2185; J2270; J7050; Q0162

== ENCOUNTER 2020-03-09 21:55 | Inpatient (IN) | payer MEDICARE, MEDICAID ==
[~2020-03-09] VITALS: Ht 170.2 cm; Wt 129.7 kg
[~2020-03-09 21:55] MED LIST changes: +APIX5TAB PO; -ASPI-1079 PO; -ASPI-1160 PO; +ASPI-1497 PO; +ATOR40TA70 PO; -CARV25TA47 PO; +CARV3.1242 MT; -CINA30 PO; +FERR325T6 PO; -KDUR10 PO; -Nystatin SSW; -SACU1TAB4 PO; -SENN-22 PO; -SEVE800T8 PO; -SIMV10TA97 PO; -SPIR25TA6 PO; -Spironolactone PO; -TRAM50TA3 PO
[2020-03-09] MEDS ORDERED: SODIUM CHLORIDE 0.9% 1,000 ML IV ONE (23:00)
[2020-03-10 04:50] LABS: CHLORIDE 102 mEq/L (98-107)
[2020-03-10 04:53] LABS: HEMATOCRIT. 38.1 % (36.0-48.0); HEMOGLOBIN. 12.3 g/dL (12.0-16.0); MEAN CORPUSCULAR HEMOGLOBIN 27.9 pg (28.0-32.0); MEAN CORPUSCULAR VOLUME 86.6 fL (81.0-99.0); MEAN PLATELET VOLUME 10.1 fl (7.4-10.4); PLATELET 129 x1000/uL (130-400); RED CELL DISTRIBUTION WIDTH 19.6 % (11.6-14.6)
[2020-03-10] MEDS ORDERED: POTASSIUM CHLORIDE 20MEQ TABLET SR PO NR (06:00)
[2020-03-10 08:40] LABS: ATYPICAL LYMPHOCYTES 1; PLATELET ESTIMATE SLIGHTLY DECREASED
[2020-03-10 11:00] VITALS: BP 107/76
[2020-03-10] MEDS ORDERED: DILT30TA3 PO (12:00)
[2020-03-10] MEDS ORDERED: AMLO2.5T45 PO (12:00)
[2020-03-10] MEDS ORDERED: PANT40TA4 MT (12:00)
[2020-03-10] MEDS ORDERED: SIME80TA15 PO (12:00)
[2020-03-10] MEDS ORDERED: SENN-170 PO (12:00)
[2020-03-10] MEDS ORDERED: ONDA4TAB5 PO (12:00)
[2020-03-10] MEDS ORDERED: ZNOU TP (12:00)
[2020-03-10] MEDS ORDERED: POLY17PO28 PO (12:00)
[2020-03-10] MEDS ORDERED: BISA10SU62 RC (12:00)
[2020-03-10] MEDS ORDERED: POTA20TA82 MT (12:00)
[2020-03-10] MEDS ORDERED: TRAM50TA3 MT (12:00)
[2020-03-10] MEDS ORDERED: TOPUD PO (12:00)
[2020-03-10] MEDS ORDERED: ONDANSETRON HCL 4MG/2ML INJ IV PRN (13:00)
[2020-03-10 16:00] VITALS: BP 90/64
[2020-03-10] MEDS: FUROSEMIDE 40MG/4ML VIAL IVP SCH (18:03)
[2020-03-10 20:00] VITALS: BP 112/61
[2020-03-10 20:11] LABS: INR 1.3; PROTHROMBIN TIME 13.4 sec (9.6-11.0)
[2020-03-10] MEDS: ENOXAPARIN 30MG/0.3ML SYR SUBCUT SCH (21:05)
[2020-03-10] MEDS: CARVEDILOL 3.125 MG TABLET PO SCH (21:28)
[2020-03-11] VITALS: BP 128/82
[2020-03-11 04:00] VITALS: BP 130/77
[2020-03-11] MEDS: FUROSEMIDE 40MG/4ML VIAL IVP SCH ×2 (06:57→17:57)
[2020-03-11 07:32] LABS: BASOPHILS % 0.5 % (0.0-2.0); EOSINOPHILS % 0.1 % (0.0-5.0); HEMATOCRIT. 34.3 % (36.0-48.0); HEMOGLOBIN. 11.2 g/dL (12.0-16.0); LYMPHOCYTES % 10.7 % (20.0-50.0); MEAN CORPUSCULAR HEMOGLOBIN 28.3 pg (28.0-32.0); MEAN CORPUSCULAR VOLUME 86.6 fL (81.0-99.0); MEAN PLATELET VOLUME 9.7 fl (7.4-10.4); MONOCYTES % 12.6 % (2.0-8.0); NEUTROPHILS % 76.1 % (40.0-76.0); PLATELET 140 x1000/uL (130-400); RED BLOOD CELL COUNT 3.96 mill/uL (4.2-5.4); RED CELL DISTRIBUTION WIDTH 20.3 % (11.6-14.6)
[2020-03-11 08:00] VITALS: BP 101/76
[2020-03-11] MEDS: ENOXAPARIN 30MG/0.3ML SYR SUBCUT SCH ×2 (08:58→20:24)
[2020-03-11] MEDS: CARVEDILOL 3.125 MG TABLET PO SCH ×2 (08:58→20:24)
[2020-03-11] MEDS: LOSARTAN POTASSIUM 25 MG TABLET PO SCH (08:58)
[2020-03-11] MEDS: POTASSIUM CHLORIDE 20MEQ TABLET SR PO SCH (08:58)
[2020-03-11 12:00] VITALS: BP 122/80
[2020-03-11 20:00] VITALS: BP 126/80
[2020-03-12 00:05] VITALS: BP 114/76
[2020-03-12 04:00] VITALS: BP 119/76
[2020-03-12] MEDS: FUROSEMIDE 40MG/4ML VIAL IVP SCH ×2 (06:16→15:49)
[2020-03-12] MEDS: CARVEDILOL 3.125 MG TABLET PO SCH ×2 (08:51→20:12)
[2020-03-12] MEDS: LOSARTAN POTASSIUM 25 MG TABLET PO SCH (08:51)
[2020-03-12] MEDS: ENOXAPARIN 30MG/0.3ML SYR SUBCUT SCH ×2 (08:53→20:12)
[2020-03-12] MEDS: POTASSIUM CHLORIDE 20MEQ TABLET SR PO SCH (08:53)
[2020-03-12] MEDS ORDERED: HYDROCODONE/ACETAMINOPHEN 5/325MG TABLET PO PRN (14:45)
[2020-03-12 16:00] LABS: BASOPHILS % 1.1 % (0.0-2.0); EOSINOPHILS % 0.1 % (0.0-5.0); HEMATOCRIT. 39.2 % (36.0-48.0); HEMOGLOBIN. 12.3 g/dL (12.0-16.0); MEAN CORPUSCULAR HEMOGLOBIN 28.1 pg (28.0-32.0); MEAN CORPUSCULAR VOLUME 89.7 fL (81.0-99.0); MEAN PLATELET VOLUME 9.8 fl (7.4-10.4); MONOCYTES % 9.6 % (2.0-8.0); NEUTROPHILS % 81.2 % (40.0-76.0); PLATELET 147 x1000/uL (130-400); RED BLOOD CELL COUNT 4.37 mill/uL (4.2-5.4)
[2020-03-12] MEDS ORDERED: MORPHINE SULFATE 2 MG/ML CPJ (NOT FOR IM USE) IV SCH (16:00)
[2020-03-12 20:00] VITALS: BP 129/78
[2020-03-13 00:05] VITALS: BP 131/84
[2020-03-13 04:00] VITALS: BP 120/89
[2020-03-13] MEDS: FUROSEMIDE 40MG/4ML VIAL IVP SCH ×2 (05:55→18:20)
[2020-03-13 07:22] LABS: BASOPHILS % 0.4 % (0.0-2.0); EOSINOPHILS % 0.5 % (0.0-5.0); HEMATOCRIT. 34.7 % (36.0-48.0); HEMOGLOBIN. 11.3 g/dL (12.0-16.0); LYMPHOCYTES % 9.8 % (20.0-50.0); MEAN CORPUSCULAR HEMOGLOBIN 28.4 pg (28.0-32.0); MEAN CORPUSCULAR VOLUME 87.1 fL (81.0-99.0); MEAN PLATELET VOLUME 9.7 fl (7.4-10.4); MONOCYTES % 9.8 % (2.0-8.0); NEUTROPHILS % 79.5 % (40.0-76.0); PLATELET 165 x1000/uL (130-400); RED BLOOD CELL COUNT 3.99 mill/uL (4.2-5.4); RED CELL DISTRIBUTION WIDTH 19.7 % (11.6-14.6)
[2020-03-13 08:42] VITALS: BP 125/86
[2020-03-13] MEDS: CARVEDILOL 3.125 MG TABLET PO SCH ×2 (09:00→22:10)
[2020-03-13] MEDS: LOSARTAN POTASSIUM 25 MG TABLET PO SCH (10:42)
[2020-03-13] MEDS: ENOXAPARIN 30MG/0.3ML SYR SUBCUT SCH (10:44)
[2020-03-13] MEDS: POTASSIUM CHLORIDE 20MEQ TABLET SR PO SCH (10:44)
[2020-03-13 12:11] VITALS: BP 114/81
[2020-03-13] MEDS ORDERED: POTASSIUM CHLORIDE 20MEQ TABLET SR PO NR (12:45)
[2020-03-13] MEDS ORDERED: ENOXAPARIN 100MG/ML SYR SUBCUT NR (15:00)
[2020-03-13] MEDS: ASPIRIN 81MG TABLET PO SCH (15:10)
[2020-03-13] MEDS: ACETAMINOPHEN 325MG TABLET PO PRN (15:11)
[2020-03-13 16:53] VITALS: BP 137/84
[2020-03-13 20:00] VITALS: BP 113/74
[2020-03-13] MEDS: ENOXAPARIN 150MG/ML SYR SUBCUT SCH (22:10)
[2020-03-14] VITALS: BP 112/82
[2020-03-14] MEDS: FUROSEMIDE 40MG/4ML VIAL IVP SCH ×2 (07:03→17:06)
[2020-03-14 08:00] VITALS: BP 109/53
[2020-03-14] MEDS: LOSARTAN POTASSIUM 25 MG TABLET PO SCH (09:00)
[2020-03-14] MEDS: CARVEDILOL 3.125 MG TABLET PO SCH ×2 (09:00→21:00)
[2020-03-14] MEDS: ENOXAPARIN 150MG/ML SYR SUBCUT SCH ×2 (09:39→21:18)
[2020-03-14] MEDS: ASPIRIN 81MG TABLET PO SCH (09:40)
[2020-03-14] MEDS: POTASSIUM CHLORIDE 20MEQ TABLET SR PO SCH (09:40)
[2020-03-14 12:00] VITALS: BP 104/81
[2020-03-14 16:00] VITALS: BP 102/66
[2020-03-14 20:00] VITALS: BP 96/75
[2020-03-14] MEDS: ACETAMINOPHEN 325MG TABLET PO PRN (21:18)
[2020-03-15] VITALS: BP 91/62
[2020-03-15 04:00] VITALS: BP 98/60
[2020-03-15] MEDS: FUROSEMIDE 40MG/4ML VIAL IVP SCH ×2 (06:23→17:13)
[2020-03-15 08:00] VITALS: BP 109/67
[2020-03-15] MEDS: LOSARTAN POTASSIUM 25 MG TABLET PO SCH (09:00)
[2020-03-15] MEDS: CARVEDILOL 3.125 MG TABLET PO SCH (09:00)
[2020-03-15] MEDS: ASPIRIN 81MG TABLET PO SCH (10:19)
[2020-03-15] MEDS: ENOXAPARIN 150MG/ML SYR SUBCUT SCH (10:19)
[2020-03-15] MEDS: POTASSIUM CHLORIDE 20MEQ TABLET SR PO SCH (10:19)
[2020-03-15 12:00] VITALS: BP 98/63
[2020-03-15 15:15] LABS: BASOPHILS % 0.8 % (0.0-2.0); EOSINOPHILS % 0.8 % (0.0-5.0); HEMATOCRIT. 36.7 % (36.0-48.0); HEMOGLOBIN. 11.5 g/dL (12.0-16.0); LYMPHOCYTES % 12.1 % (20.0-50.0); MEAN CORPUSCULAR HEMOGLOBIN 27.7 pg (28.0-32.0); MEAN CORPUSCULAR VOLUME 88.4 fL (81.0-99.0); NEUTROPHILS % 75.3 % (40.0-76.0); PLATELET 199 x1000/uL (130-400); RED BLOOD CELL COUNT 4.16 mill/uL (4.2-5.4); RED CELL DISTRIBUTION WIDTH 20.6 % (11.6-14.6)
[2020-03-15 16:00] VITALS: BP 95/66
[2020-03-15 20:00] VITALS: BP 113/65
[2020-03-16] VITALS: BP 109/70
[2020-03-16] MEDS: CARVEDILOL 3.125 MG TABLET PO SCH ×3 (01:00→21:36)
[2020-03-16] MEDS: ENOXAPARIN 150MG/ML SYR SUBCUT SCH ×3 (01:02→21:39)
[2020-03-16 04:00] VITALS: BP 101/61
[2020-03-16 07:12] LABS: BASOPHILS % 0.5 % (0.0-2.0); EOSINOPHILS % 0.3 % (0.0-5.0); HEMATOCRIT. 35.4 % (36.0-48.0); HEMOGLOBIN. 11.3 g/dL (12.0-16.0); MEAN PLATELET VOLUME 10.6 fl (7.4-10.4); MONOCYTES % 7.8 % (2.0-8.0); NEUTROPHILS % 79.4 % (40.0-76.0); PLATELET 221 x1000/uL (130-400); RED BLOOD CELL COUNT 4.03 mill/uL (4.2-5.4); RED CELL DISTRIBUTION WIDTH 20.3 % (11.6-14.6)
[2020-03-16] MEDS: FUROSEMIDE 40MG/4ML VIAL IVP SCH ×3 (07:15→17:38)
[2020-03-16] MEDS: LOSARTAN POTASSIUM 25 MG TABLET PO SCH (09:00)
[2020-03-16] MEDS: ASPIRIN 81MG TABLET PO SCH (10:47)
[2020-03-16] MEDS: POTASSIUM CHLORIDE 20MEQ TABLET SR PO SCH (10:47)
[2020-03-16 12:00] VITALS: BP 115/68
[2020-03-16 16:00] VITALS: BP 116/77
[2020-03-16 20:55] VITALS: BP 131/93
[2020-03-17 00:28] VITALS: BP 119/82
[2020-03-17 04:00] VITALS: BP 111/71
[2020-03-17] MEDS: FUROSEMIDE 40MG/4ML VIAL IVP SCH (06:29)
[2020-03-17 08:00] VITALS: BP 121/73
[2020-03-17] MEDS: CARVEDILOL 3.125 MG TABLET PO SCH ×2 (09:11→21:00)
[2020-03-17] MEDS: LOSARTAN POTASSIUM 25 MG TABLET PO SCH (09:11)
[2020-03-17] MEDS: POTASSIUM CHLORIDE 20MEQ TABLET SR PO SCH (09:11)
[2020-03-17] MEDS: ASPIRIN 81MG TABLET PO SCH (09:11)
[2020-03-17] MEDS: ENOXAPARIN 150MG/ML SYR SUBCUT SCH ×2 (09:12→21:44)
[2020-03-17 12:10] VITALS: BP 97/67
[2020-03-17] MEDS ORDERED: DEXTROSE 50% WATER 50ML SYRINGE IV PRN (12:30)
[2020-03-17 16:18] VITALS: BP 110/88
[2020-03-17] MEDS: BLOOD SUGAR DIAGNOSTIC STRIP TEST SCH ×2 (17:55→21:45)
[2020-03-17] MEDS: FUROSEMIDE 40MG TABLET PO SCH (21:44)
[2020-03-17 22:13] VITALS: BP 107/67
[2020-03-18] VITALS: BP 118/84
[2020-03-18 04:30] VITALS: BP 95/50
[2020-03-18] MEDS: BLOOD SUGAR DIAGNOSTIC STRIP TEST SCH ×4 (06:32→21:00)
[2020-03-18 07:21] LABS: BASOPHILS % 0.9 % (0.0-2.0); EOSINOPHILS % 0.1 % (0.0-5.0); HEMATOCRIT. 36.3 % (36.0-48.0); HEMOGLOBIN. 11.3 g/dL (12.0-16.0); LYMPHOCYTES % 14.6 % (20.0-50.0); MEAN CORPUSCULAR HEMOGLOBIN 27.5 pg (28.0-32.0); MEAN CORPUSCULAR VOLUME 88.7 fL (81.0-99.0); MEAN PLATELET VOLUME 10.7 fl (7.4-10.4); MONOCYTES % 10.5 % (2.0-8.0); NEUTROPHILS % 73.9 % (40.0-76.0); PLATELET 235 x1000/uL (130-400)
[2020-03-18 08:00] VITALS: BP 91/66
[2020-03-18] MEDS: LOSARTAN POTASSIUM 25 MG TABLET PO SCH (09:00)
[2020-03-18] MEDS: CARVEDILOL 3.125 MG TABLET PO SCH ×2 (09:00→22:25)
[2020-03-18] MEDS: FUROSEMIDE 40MG TABLET PO SCH ×2 (09:00→22:25)
[2020-03-18] MEDS: ENOXAPARIN 150MG/ML SYR SUBCUT SCH (10:56)
[2020-03-18] MEDS: ASPIRIN 81MG TABLET PO SCH (10:56)
[2020-03-18] MEDS: POTASSIUM CHLORIDE 20MEQ TABLET SR PO SCH (10:56)
[2020-03-18 20:00] VITALS: BP 123/77
[2020-03-19 08:00] VITALS: BP_SYST 98
[2020-03-19] MEDS: BLOOD SUGAR DIAGNOSTIC STRIP TEST SCH ×4 (08:17→21:06)
[2020-03-19] MEDS: LOSARTAN POTASSIUM 25 MG TABLET PO SCH (09:00)
[2020-03-19] MEDS: CARVEDILOL 3.125 MG TABLET PO SCH ×2 (09:00→20:46)
[2020-03-19] MEDS: POTASSIUM CHLORIDE 20MEQ TABLET SR PO SCH (09:00)
[2020-03-19] MEDS: ASPIRIN 81MG TABLET PO SCH (10:18)
[2020-03-19] MEDS: FUROSEMIDE 40MG TABLET PO SCH ×2 (10:19→20:45)
[2020-03-19] MEDS: APIXABAN 5 MG TABLET PO SCH ×2 (10:19→20:45)
[2020-03-19] MEDS: ACETAMINOPHEN 325MG TABLET PO PRN (18:13)
[2020-03-19 20:00] VITALS: BP 107/78
[2020-03-20] MEDS: ACETAMINOPHEN 325MG TABLET PO PRN (03:31)
[2020-03-20] MEDS: BLOOD SUGAR DIAGNOSTIC STRIP TEST SCH ×2 (06:23→12:20)
[2020-03-20 08:00] VITALS: BP 110/74
[2020-03-20] MEDS: LOSARTAN POTASSIUM 25 MG TABLET PO SCH (09:00)
[2020-03-20] MEDS: CARVEDILOL 3.125 MG TABLET PO SCH (09:00)
[2020-03-20] MEDS: ASPIRIN 81MG TABLET PO SCH (09:28)
[2020-03-20] MEDS: APIXABAN 5 MG TABLET PO SCH (09:29)
[2020-03-20] MEDS: FUROSEMIDE 40MG TABLET PO SCH (09:29)
[2020-03-20] MEDS: POTASSIUM CHLORIDE 20MEQ TABLET SR PO SCH (09:29)
[2020-03-20 12:00] VITALS: BP 110/84
[2020-03-20 12:54] VITALS: BP 110/74
== END 2020-03-20 14:00 | DRG 177 ==
LOC: ER 21:55 → 6EST 03-10 06:29 → ENRESERV 03-10 09:47 → 6EST 03-10 11:36 → 7EST 03-11 12:34 → 6WST 03-13 19:59
PROVIDERS: ADMIT Internal Medicine; ATTEND Family Medicine Adult Medicine
PROC: 0W9G3ZZ Drainage of Peritoneal Cavity, Percutaneous Approach (ICD-10-PCS; principal; 2020-03-11)
DX: U07.1 COVID-19 (principal); I50.23 Acute on chronic systolic (congestive) heart failure; E43 Unspecified severe protein-calorie malnutrition; J12.82 Pneumonia due to coronavirus disease 2019; I13.0 Hypertensive heart and chronic kidney disease with heart failure and stage 1 through stage 4 chronic kidney disease, or unspecified chronic kidney disease; N17.9 Acute kidney failure, unspecified; Z68.41 Body mass index [BMI] 40.0-44.9, adult; R18.8 Other ascites; I42.0 Dilated cardiomyopathy; E87.0 Hyperosmolality and hypernatremia; N18.30 Chronic kidney disease, stage 3 unspecified; I27.20 Pulmonary hypertension, unspecified; E78.5 Hyperlipidemia, unspecified; E87.6 Hypokalemia; E03.9 Hypothyroidism, unspecified; J45.909 Unspecified asthma, uncomplicated; R62.7 Adult failure to thrive; K43.9 Ventral hernia without obstruction or gangrene; E66.01 Morbid (severe) obesity due to excess calories; I48.0 Paroxysmal atrial fibrillation; D64.9 Anemia, unspecified; E05.90 Thyrotoxicosis, unspecified without thyrotoxic crisis or storm; M10.9 Gout, unspecified; E16.2 Hypoglycemia, unspecified; E78.00 Pure hypercholesterolemia, unspecified; Z95.810 Presence of automatic (implantable) cardiac defibrillator; Z91.14 Patient's other noncompliance with medication regimen; Z79.01 Long term (current) use of anticoagulants; Z79.82 Long term (current) use of aspirin; Z79.899 Other long term (current) drug therapy; Z88.0 Allergy status to penicillin; Z88.8 Allergy status to other drugs, medicaments and biological substances
CPT/HCPCS: 36415; 49083; 74176; 80048; 80053; 82728; 82962; 83036; 83735; 85025; 85379; 86140; 87426; 99285; J1650; J1940; J2270; J7030; U0003

== ENCOUNTER 2020-05-29 11:31 | Inpatient (IN) | payer MEDICARE, MEDICAID ==
[~2020-05-29] VITALS: Ht 175.3 cm; Wt 101.6 kg
[~2020-05-29 11:31] MED LIST changes: +AMLO2.5T45 PO; +BISA10SU62 RC; +DILT30TA3 PO; +ONDA4TAB5 PO; +PANT40TA51 MT; +POLY17PO43 PO; +POTA20TA82 MT; +SENN-257 PO; +SIME80TA15 PO; +TOPUD PO; +TRAM50TA3 MT; +ZNOU TP
[2020-05-29] MEDS ORDERED: SODIUM CHLORIDE 0.9% 250 ML IV ONE (12:15)
[2020-05-29 12:41] LABS: BG BASE EXCESS -0.1 mmol/L (-2.0-2.0); BG CARBOXYHEMOGLOBIN 0.2 % (0.5-1.5); BG DEOXYHEMOGLOBIN 2.6 % (0.0-5.0); BG FRACTION INSPIRED OXYGEN 21; BG HCO3 ACT 23.9 mmol/L (22.0-26.0); BG METHEMOGLOBIN 0.2 % (0.0-1.5); BG OXYGEN SATURATION 97.4 % (92.0-98.5); BG PCO2 36.8 mmHg (35.0-45.0); BG PH 7.431 (7.350-7.450); BG PO2 94.3 mmHg (75.0-100.0); BG SAMPLE SITE RIGHT RADIAL; BG TOTAL HEMOGLOBIN 11.9 g/dL (12.0-18.0); BG VENT MODE ROOM AIR
[2020-05-29 13:12] LABS: BASOPHILS % 0.9 % (0.0-2.0); EOSINOPHILS % 0.4 % (0.0-5.0); HEMATOCRIT. 36.5 % (36.0-48.0); HEMOGLOBIN. 11.3 g/dL (12.0-16.0); LYMPHOCYTES % 18.5 % (20.0-50.0); MEAN CORPUSCULAR HEMOGLOBIN 29.6 pg (28.0-32.0); MEAN CORPUSCULAR VOLUME 95.9 fL (81.0-99.0); MEAN PLATELET VOLUME 10.3 fl (7.4-10.4); MONOCYTES % 8.1 % (2.0-8.0); NEUTROPHILS % 72.1 % (40.0-76.0); PLATELET 234 x1000/uL (130-400); RED BLOOD CELL COUNT 3.81 mill/uL (4.2-5.4)
[2020-05-29 13:19] LABS: CHLORIDE 108 mEq/L (98-107)
[2020-05-29] MEDS ORDERED: DIGOXIN 500MCG/2ML AMP IV ONE (14:00)
[2020-05-29] MEDS ORDERED: CALCIUM GLUCONATE 100MG/ML 10ML VIAL IV ONE (14:00)
[2020-05-29] MEDS ORDERED: LIDOCAINE HCL 1% 20ML VIAL (Pyxis) INJ ONE (14:10)
[2020-05-29] MEDS ORDERED: FUROSEMIDE 40MG/4ML VIAL IVP SCH (14:45)
[2020-05-29] MEDS ORDERED: IPRATROPIUM/ALBUTEROL 0.5-3(2.5)MG/3ML NEB NEB PRN (15:00)
[2020-05-29] MEDS ORDERED: CLONIDINE 0.1MG TABLET PO PRN (15:00)
[2020-05-29] MEDS ORDERED: ACETAMINOPHEN 325MG TABLET PO PRN (15:00)
[2020-05-29] MEDS ORDERED: AMIODARONE HCL 200 MG TABLET PO SCH (15:00)
[2020-05-29] MEDS ORDERED: NITROGLYCERIN 0.4MG TABLET SL SL PRN (15:00)
[2020-05-29] MEDS ORDERED: ENOXAPARIN 40MG/0.4ML SYR SUBCUT SCH (15:00)
[2020-05-29] MEDS ORDERED: GUAIFENESIN 200MG/10ML SUGAR FREE UDC PO PRN (15:00)
[2020-05-29] MEDS: LORAZEPAM 0.5MG TABLET PO PRN (15:26)
[2020-05-29] MEDS: ENOXAPARIN 100MG/ML SYR SUBCUT SCH (15:26)
[2020-05-29 16:02] LABS: INR 1.3
[2020-05-29] MEDS ORDERED: FUROSEMIDE 100MG/10ML VIAL IVP SCH ×2 (17:00→17:15)
[2020-05-29] MEDS ORDERED: FUROSEMIDE 40MG/4ML VIAL IV SCH (17:15)
[2020-05-29 19:31] LABS: CLARITY URINE CLOUDY (CLEAR); COLOR URINE YELLOW (YELLOW); KETONES URINE NEGATIVE (NEGATIVE); LEUKOCYTE ESTERASE URINE TRACE (NEGATIVE); NITRITE URINE NEGATIVE (NEGATIVE); OCCULT BLOOD URINE TRACE (NEGATIVE); PROTEIN URINE TRACE (NEGATIVE); SPECIFIC GRAVITY URINE 1.014 (1.005-1.030); UROBILINOGEN URINE 0.2 E.U./dL (0.2-1.0)
[2020-05-29 19:48] LABS: *AMPHETAMINES SCREEN URINE NEGATIVE (NEGATIVE); *BARBITURATES SCREEN URINE NEGATIVE (NEGATIVE); *BENZODIAZEPINES SCREEN URINE NEGATIVE (NEGATIVE); *COCAINE SCREEN URINE NEGATIVE (NEGATIVE)
[2020-05-29 19:49] LABS: CANNABINOID URINE SCREEN NEGATIVE (NEGATIVE); METHADONE URINE SCREEN NEGATIVE (NEGATIVE); OPIATES URINE SCREEN NEGATIVE (NEGATIVE); PHENCYCLIDINE URINE SCREEN NEGATIVE (NEGATIVE)
[2020-05-29] MEDS: TRAMADOL 50MG TABLET PO PRN (19:53)
[2020-05-29] MEDS ORDERED: SPIRONOLACTONE 25MG TABLET PO SCH (21:00)
[2020-05-29] MEDS ORDERED: CARVEDILOL 3.125 MG TABLET PO SCH (21:00)
[2020-05-29] MEDS: ASCORBIC ACID 500 MG TABLET PO SCH (21:00)
[2020-05-29 21:30] VITALS: BP 93/56
[2020-05-29 21:35] LABS: T4 FREE 1.71 ng/dL (0.76-1.46)
[2020-05-29 21:49] LABS: DIGOXIN < 0.1 ng/mL (0.9-2.0)
[2020-05-29] MEDS ORDERED: LEVOFLOXACIN 500MG PREMIX 100 ML IV SCH (23:00)
[2020-05-30] VITALS (8 sets, daily range): BP systolic 101–156; BP diastolic 67–96
[2020-05-30] MEDS ORDERED: LEVOFLOXACIN 500MG PREMIX 100 ML IV SCH
[2020-05-30 00:40] LABS: CREATINE KINASE 59 IU/L (26-192); CREATINE KINASE MB FRACTION < 1.0 ng/mL (0.5-3.6)
[2020-05-30] MEDS: CARVEDILOL 3.125 MG TABLET PO SCH ×3 (01:10→21:28)
[2020-05-30] MEDS: FAMOTIDINE 20MG TABLET PO SCH ×2 (01:10→21:16)
[2020-05-30] MEDS: AMIODARONE HCL 200 MG TABLET PO SCH ×3 (01:10→21:16)
[2020-05-30] MEDS: TRAMADOL 50MG TABLET PO PRN ×2 (03:49→17:12)
[2020-05-30] MEDS: LORAZEPAM 0.5MG TABLET PO PRN (04:37)
[2020-05-30 06:32] LABS: CHLORIDE 108 mEq/L (98-107)
[2020-05-30 06:37] LABS: BASOPHILS % 1.1 % (0.0-2.0); EOSINOPHILS % 0.5 % (0.0-5.0); HEMATOCRIT. 32.8 % (36.0-48.0); HEMOGLOBIN. 10.3 g/dL (12.0-16.0); MEAN CORPUSCULAR HEMOGLOBIN 30.3 pg (28.0-32.0); MEAN CORPUSCULAR VOLUME 96.6 fL (81.0-99.0); MONOCYTES % 8.2 % (2.0-8.0); NEUTROPHILS % 72.2 % (40.0-76.0); PLATELET 212 x1000/uL (130-400); RED CELL DISTRIBUTION WIDTH 19.3 % (11.6-14.6)
[2020-05-30 06:43] LABS: CREATINE KINASE 41 IU/L (26-192)
[2020-05-30] MEDS: FUROSEMIDE 100MG/10ML VIAL IVP SCH ×2 (06:43→17:11)
[2020-05-30 06:45] LABS: CREATINE KINASE MB FRACTION < 1.0 ng/mL (0.5-3.6)
[2020-05-30] MEDS ORDERED: FUROSEMIDE 100MG/10ML VIAL IVP SCH (07:15)
[2020-05-30] MEDS: ONDANSETRON HCL 4MG/2ML INJ IV PRN ×2 (08:27→15:46)
[2020-05-30] MEDS: ZINC SULFATE 220 MG ( 50 ) CAPSULE PO SCH (08:28)
[2020-05-30] MEDS: CHOLECALCIFEROL (D3) 1000 UNIT TABLET PO SCH (08:28)
[2020-05-30] MEDS: ASPIRIN 81MG TABLET PO SCH (08:28)
[2020-05-30] MEDS: ASCORBIC ACID 500 MG TABLET PO SCH ×2 (08:28→21:16)
[2020-05-30] MEDS: LEVOTHYROXINE SODIUM 50MCG TABLET PO SCH (08:28)
[2020-05-30] MEDS: LACTULOSE 20G/30ML UDC PO SCH ×2 (15:51→21:28)
[2020-05-30] MEDS: ENOXAPARIN 100MG/ML SYR SUBCUT SCH (15:51)
[2020-05-30] MEDS: LEVOFLOXACIN 250MG PREMIX 50 ML IV SCH (21:28)
[2020-05-30] MEDS: ZOLPIDEM TARTRATE 5MG TABLET PO PRN (21:36)
[2020-05-31] VITALS (9 sets, daily range): BP systolic 93–153; BP diastolic 48–85
[2020-05-31] MEDS: ONDANSETRON HCL 4MG/2ML INJ IV PRN ×3 (00:27→23:33)
[2020-05-31] MEDS: TRAMADOL 50MG TABLET PO PRN ×3 (00:27→21:00)
[2020-05-31] MEDS: LACTULOSE 20G/30ML UDC PO SCH ×3 (05:56→21:10)
[2020-05-31] MEDS: FUROSEMIDE 100MG/10ML VIAL IVP SCH (05:56)
[2020-05-31 06:56] LABS: BASOPHILS % 0.6 % (0.0-2.0); EOSINOPHILS % 0.2 % (0.0-5.0); HEMATOCRIT. 35.3 % (36.0-48.0); HEMOGLOBIN. 11.2 g/dL (12.0-16.0); MEAN CORPUSCULAR HEMOGLOBIN 30.8 pg (28.0-32.0); MEAN CORPUSCULAR VOLUME 97.2 fL (81.0-99.0); MEAN PLATELET VOLUME 9.9 fl (7.4-10.4); MONOCYTES % 9.9 % (2.0-8.0); NEUTROPHILS % 76.3 % (40.0-76.0); PLATELET 231 x1000/uL (130-400); RED BLOOD CELL COUNT 3.64 mill/uL (4.2-5.4); RED CELL DISTRIBUTION WIDTH 19.3 % (11.6-14.6)
[2020-05-31] MEDS: ZINC SULFATE 220 MG ( 50 ) CAPSULE PO SCH (09:00)
[2020-05-31] MEDS: AMIODARONE HCL 200 MG TABLET PO SCH ×2 (09:00→21:10)
[2020-05-31] MEDS: CARVEDILOL 3.125 MG TABLET PO SCH ×2 (09:00→21:12)
[2020-05-31] MEDS: ASPIRIN 81MG TABLET PO SCH (09:00)
[2020-05-31] MEDS ORDERED: SODIUM POLYSTYRENE SULFONATE 15 G/60 ML BOT PO NR ×2 (10:00→20:30)
[2020-05-31] MEDS: ENOXAPARIN 100MG/ML SYR SUBCUT SCH (10:40)
[2020-05-31] MEDS: LEVOTHYROXINE SODIUM 50MCG TABLET PO SCH (10:43)
[2020-05-31] MEDS: CHOLECALCIFEROL (D3) 1000 UNIT TABLET PO SCH (10:43)
[2020-05-31] MEDS: ASCORBIC ACID 500 MG TABLET PO SCH ×2 (10:43→21:00)
[2020-05-31 12:07] LABS: HEPATITIS B SURFACE AB < 3.1 mIU/mL
[2020-05-31 12:17] LABS: HEPATITIS B SURFACE ANTIGEN NEGATIVE
[2020-05-31 12:47] LABS: HEPATITIS A AB IGM NEGATIVE (NEGATIVE)
[2020-05-31] MEDS ORDERED: LIDOCAINE HCL 1% 20ML VIAL (Pyxis) INJ ONE (14:50)
[2020-05-31] MEDS ORDERED: HEPARIN 1000 UNITS/ML 10ML ONE (14:50)
[2020-05-31] MEDS ORDERED: FUROSEMIDE 40MG/4ML VIAL IVP SCH (18:00)
[2020-05-31] MEDS: LEVOFLOXACIN 250MG PREMIX 50 ML IV SCH (21:05)
[2020-05-31] MEDS: FAMOTIDINE 20MG TABLET PO SCH (21:06)
[2020-06-01] VITALS (8 sets, daily range): BP systolic 90–145; BP diastolic 38–98
[2020-06-01] MEDS: TRAMADOL 50MG TABLET PO PRN (03:47)
[2020-06-01] MEDS: LACTULOSE 20G/30ML UDC PO SCH ×3 (06:02→21:49)
[2020-06-01] MEDS: LEVOTHYROXINE SODIUM 50MCG TABLET PO SCH (06:03)
[2020-06-01 06:12] LABS: BASOPHILS % 0.7 % (0.0-2.0); EOSINOPHILS % 0.1 % (0.0-5.0); HEMATOCRIT. 33.3 % (36.0-48.0); HEMOGLOBIN. 10.3 g/dL (12.0-16.0); LYMPHOCYTES % 8.5 % (20.0-50.0); MEAN CORPUSCULAR HEMOGLOBIN 29.8 pg (28.0-32.0); MEAN PLATELET VOLUME 9.7 fl (7.4-10.4); MONOCYTES % 8.7 % (2.0-8.0); PLATELET 230 x1000/uL (130-400); RED BLOOD CELL COUNT 3.47 mill/uL (4.2-5.4)
[2020-06-01] MEDS: CARVEDILOL 3.125 MG TABLET PO SCH ×2 (08:58→21:49)
[2020-06-01] MEDS: ASPIRIN 81MG TABLET PO SCH (08:58)
[2020-06-01] MEDS: CHOLECALCIFEROL (D3) 1000 UNIT TABLET PO SCH (08:59)
[2020-06-01] MEDS: ZINC SULFATE 220 MG ( 50 ) CAPSULE PO SCH (08:59)
[2020-06-01] MEDS: ASCORBIC ACID 500 MG TABLET PO SCH ×2 (08:59→21:49)
[2020-06-01] MEDS: AMIODARONE HCL 200 MG TABLET PO SCH ×2 (08:59→21:48)
[2020-06-01] MEDS: ENOXAPARIN 100MG/ML SYR SUBCUT SCH (08:59)
[2020-06-01] MEDS: ACETAMINOPHEN 325MG TABLET PO PRN (10:11)
[2020-06-01] MEDS: ONDANSETRON HCL 4MG/2ML INJ IV PRN (10:11)
[2020-06-01] MEDS: MORPHINE SULFATE 2 MG/ML CPJ (NOT FOR IM USE) IV PRN (10:12)
[2020-06-01] MEDS ORDERED: LIDOCAINE HCL 1% 20ML VIAL (Pyxis) INJ ONE (10:27)
[2020-06-01] MEDS ORDERED: HEPARIN 1000 UNITS/ML 10ML ONE (10:28)
[2020-06-01] MEDS ORDERED: LORAZEPAM 2MG/ML CPJ IV PRN (11:45)
[2020-06-01] MEDS: FUROSEMIDE 100MG/10ML VIAL IVP SCH ×2 (12:00→18:00)
[2020-06-01] MEDS: FAMOTIDINE 20MG TABLET PO SCH (21:49)
[2020-06-02] VITALS (11 sets, daily range): BP systolic 100–143; BP diastolic 39–100
[2020-06-02] MEDS: ZOLPIDEM TARTRATE 5MG TABLET PO PRN (02:21)
[2020-06-02] MEDS: ONDANSETRON HCL 4MG/2ML INJ IV PRN ×2 (02:41→21:27)
[2020-06-02] MEDS: LACTULOSE 20G/30ML UDC PO SCH ×3 (06:01→21:05)
[2020-06-02] MEDS: FUROSEMIDE 100MG/10ML VIAL IVP SCH ×2 (06:01→17:55)
[2020-06-02 07:16] LABS: BASOPHILS % 0.5 % (0.0-2.0); EOSINOPHILS % 0.1 % (0.0-5.0); HEMATOCRIT. 31.1 % (36.0-48.0); HEMOGLOBIN. 9.9 g/dL (12.0-16.0); LYMPHOCYTES % 8.1 % (20.0-50.0); MEAN CORPUSCULAR HEMOGLOBIN 30.3 pg (28.0-32.0); MEAN CORPUSCULAR VOLUME 95.1 fL (81.0-99.0); MEAN PLATELET VOLUME 9.1 fl (7.4-10.4); MONOCYTES % 11.4 % (2.0-8.0); NEUTROPHILS % 79.9 % (40.0-76.0); PLATELET 205 x1000/uL (130-400); RED BLOOD CELL COUNT 3.27 mill/uL (4.2-5.4); RED CELL DISTRIBUTION WIDTH 18.8 % (11.6-14.6)
[2020-06-02] MEDS: ASCORBIC ACID 500 MG TABLET PO SCH ×2 (08:05→21:19)
[2020-06-02] MEDS: ASPIRIN 81MG TABLET PO SCH (08:06)
[2020-06-02] MEDS: ZINC SULFATE 220 MG ( 50 ) CAPSULE PO SCH (08:06)
[2020-06-02] MEDS: AMIODARONE HCL 200 MG TABLET PO SCH ×2 (08:06→21:05)
[2020-06-02] MEDS: LEVOTHYROXINE SODIUM 50MCG TABLET PO SCH (08:06)
[2020-06-02] MEDS: CARVEDILOL 3.125 MG TABLET PO SCH ×2 (08:06→21:07)
[2020-06-02] MEDS: CHOLECALCIFEROL (D3) 1000 UNIT TABLET PO SCH (08:06)
[2020-06-02 13:22] LABS: BG CARBOXYHEMOGLOBIN 0.5 % (0.5-1.5); BG DEOXYHEMOGLOBIN 3.9 % (0.0-5.0); BG FRACTION INSPIRED OXYGEN 21; BG HCO3 ACT 24.8 mmol/L (22.0-26.0); BG METHEMOGLOBIN 0.3 % (0.0-1.5); BG OXYGEN SATURATION 96.1 % (92.0-98.5); BG OXYHEMOGLOBIN 95.3 % (94.0-97.0); BG PCO2 40.9 mmHg (35.0-45.0); BG SAMPLE SITE RIGHT RADIAL; BG TOTAL HEMOGLOBIN 10.6 g/dL (12.0-18.0); BG VENT MODE ROOM AIR
[2020-06-02] MEDS: ENOXAPARIN 100MG/ML SYR SUBCUT SCH (15:56)
[2020-06-02] MEDS: MORPHINE SULFATE 2 MG/ML CPJ (NOT FOR IM USE) IV PRN ×2 (16:37→21:28)
[2020-06-02] MEDS ORDERED: LEVOFLOXACIN 250MG PREMIX 50 ML IV SCH (21:00)
[2020-06-02] MEDS: FAMOTIDINE 20MG TABLET PO SCH (21:06)
[2020-06-03] VITALS (18 sets, daily range): BP systolic 100–138; BP diastolic 66–101
[2020-06-03] MEDS: LACTULOSE 20G/30ML UDC PO SCH ×3 (05:57→21:31)
[2020-06-03] MEDS: FUROSEMIDE 100MG/10ML VIAL IVP SCH ×2 (05:57→18:00)
[2020-06-03 06:33] LABS: BASOPHILS % 0.6 % (0.0-2.0); EOSINOPHILS % 0.4 % (0.0-5.0); HEMATOCRIT. 29.8 % (36.0-48.0); HEMOGLOBIN. 9.5 g/dL (12.0-16.0); LYMPHOCYTES % 11.1 % (20.0-50.0); MEAN CORPUSCULAR HEMOGLOBIN 30.3 pg (28.0-32.0); MEAN PLATELET VOLUME 9.1 fl (7.4-10.4); NEUTROPHILS % 74.9 % (40.0-76.0); PLATELET 189 x1000/uL (130-400); RED BLOOD CELL COUNT 3.13 mill/uL (4.2-5.4); RED CELL DISTRIBUTION WIDTH 18.7 % (11.6-14.6)
[2020-06-03] MEDS: LEVOTHYROXINE SODIUM 50MCG TABLET PO SCH (10:13)
[2020-06-03] MEDS: ASPIRIN 81MG TABLET PO SCH (10:13)
[2020-06-03] MEDS: CHOLECALCIFEROL (D3) 1000 UNIT TABLET PO SCH (10:14)
[2020-06-03] MEDS: ASCORBIC ACID 500 MG TABLET PO SCH ×2 (10:14→21:31)
[2020-06-03] MEDS: AMIODARONE HCL 200 MG TABLET PO SCH ×2 (10:14→21:31)
[2020-06-03] MEDS: ZINC SULFATE 220 MG ( 50 ) CAPSULE PO SCH (10:14)
[2020-06-03] MEDS: CARVEDILOL 3.125 MG TABLET PO SCH ×2 (10:14→21:32)
[2020-06-03] MEDS: MORPHINE SULFATE 2 MG/ML CPJ (NOT FOR IM USE) IV PRN (11:02)
[2020-06-03] MEDS ORDERED: DESMOPRESSIN ACETATE 4MCG/ML AMP SUBCUT ONE (11:30)
[2020-06-03] MEDS ORDERED: DESMOPRESSIN ACETATE 30 MCG in SODIUM CHLORIDE 0.9% 50 ML IV SCH (13:00)
[2020-06-03] MEDS: ENOXAPARIN 100MG/ML SYR SUBCUT SCH (15:30)
[2020-06-03] MEDS: FAMOTIDINE 20MG TABLET PO SCH (21:31)
[2020-06-04] VITALS (12 sets, daily range): BP systolic 95–118; BP diastolic 58–87
[2020-06-04] MEDS: ACETAMINOPHEN 325MG TABLET PO PRN ×2 (02:54→10:11)
[2020-06-04] MEDS: FUROSEMIDE 100MG/10ML VIAL IVP SCH ×3 (06:00→18:00)
[2020-06-04] MEDS: LACTULOSE 20G/30ML UDC PO SCH ×3 (06:18→21:53)
[2020-06-04 06:26] LABS: BASOPHILS % 0.6 % (0.0-2.0); EOSINOPHILS % 0.9 % (0.0-5.0); HEMATOCRIT. 26.7 % (36.0-48.0); HEMOGLOBIN. 8.5 g/dL (12.0-16.0); LYMPHOCYTES % 12.3 % (20.0-50.0); MEAN CORPUSCULAR HEMOGLOBIN 30.1 pg (28.0-32.0); MEAN PLATELET VOLUME 9.4 fl (7.4-10.4); MONOCYTES % 12.4 % (2.0-8.0); NEUTROPHILS % 73.8 % (40.0-76.0); PLATELET 165 x1000/uL (130-400); RED BLOOD CELL COUNT 2.82 mill/uL (4.2-5.4); RED CELL DISTRIBUTION WIDTH 18.6 % (11.6-14.6)
[2020-06-04] MEDS: CARVEDILOL 3.125 MG TABLET PO SCH ×2 (09:00→21:00)
[2020-06-04] MEDS: ASCORBIC ACID 500 MG TABLET PO SCH ×2 (10:07→21:53)
[2020-06-04] MEDS: CHOLECALCIFEROL (D3) 1000 UNIT TABLET PO SCH (10:07)
[2020-06-04] MEDS: ASPIRIN 81MG TABLET PO SCH (10:08)
[2020-06-04] MEDS: ZINC SULFATE 220 MG ( 50 ) CAPSULE PO SCH (10:08)
[2020-06-04] MEDS: AMIODARONE HCL 200 MG TABLET PO SCH ×2 (10:13→21:53)
[2020-06-04] MEDS: LEVOTHYROXINE SODIUM 50MCG TABLET PO SCH (10:21)
[2020-06-04 13:17] LABS: HEMATOCRIT 27.4 % (36.0-48.0); HEMOGLOBIN 8.5 g/dL (12.0-16.0)
[2020-06-04 13:25] LABS: INR 1.3; PROTHROMBIN TIME 13.9 sec (9.6-11.0)
[2020-06-04] MEDS: ENOXAPARIN 100MG/ML SYR SUBCUT SCH (17:20)
[2020-06-04] MEDS: FAMOTIDINE 20MG TABLET PO SCH (21:53)
[2020-06-05] VITALS (11 sets, daily range): BP systolic 97–163; BP diastolic 62–102
[2020-06-05] MEDS: ACETAMINOPHEN 325MG TABLET PO PRN ×2 (04:06→23:22)
[2020-06-05 05:47] LABS: BASOPHILS % 0.7 % (0.0-2.0); EOSINOPHILS % 1.1 % (0.0-5.0); HEMATOCRIT. 26.9 % (36.0-48.0); HEMOGLOBIN. 8.4 g/dL (12.0-16.0); LYMPHOCYTES % 10.8 % (20.0-50.0); MEAN CORPUSCULAR HEMOGLOBIN 29.8 pg (28.0-32.0); MEAN CORPUSCULAR VOLUME 95.5 fL (81.0-99.0); MEAN PLATELET VOLUME 9.4 fl (7.4-10.4); MONOCYTES % 11.1 % (2.0-8.0); NEUTROPHILS % 76.3 % (40.0-76.0); PLATELET 156 x1000/uL (130-400); RED BLOOD CELL COUNT 2.82 mill/uL (4.2-5.4); RED CELL DISTRIBUTION WIDTH 18.5 % (11.6-14.6)
[2020-06-05] MEDS: LACTULOSE 20G/30ML UDC PO SCH ×3 (05:58→21:21)
[2020-06-05] MEDS: FUROSEMIDE 100MG/10ML VIAL IVP SCH ×2 (05:58→14:28)
[2020-06-05] MEDS: ZINC SULFATE 220 MG ( 50 ) CAPSULE PO SCH (09:00)
[2020-06-05] MEDS: AMIODARONE HCL 200 MG TABLET PO SCH ×2 (09:00→21:21)
[2020-06-05] MEDS: CARVEDILOL 3.125 MG TABLET PO SCH ×2 (09:00→21:00)
[2020-06-05] MEDS: ASPIRIN 81MG TABLET PO SCH (09:00)
[2020-06-05] MEDS: LEVOTHYROXINE SODIUM 50MCG TABLET PO SCH (10:45)
[2020-06-05] MEDS: CHOLECALCIFEROL (D3) 1000 UNIT TABLET PO SCH (10:45)
[2020-06-05] MEDS: ASCORBIC ACID 500 MG TABLET PO SCH ×2 (10:45→21:21)
[2020-06-05] MEDS: ENOXAPARIN 100MG/ML SYR SUBCUT SCH (14:28)
[2020-06-05] MEDS: FAMOTIDINE 20MG TABLET PO SCH (21:21)
[2020-06-06] VITALS (12 sets, daily range): BP systolic 86–109; BP diastolic 49–72
[2020-06-06] MEDS: FUROSEMIDE 100MG/10ML VIAL IVP SCH ×2 (05:24→17:59)
[2020-06-06] MEDS: LACTULOSE 20G/30ML UDC PO SCH ×3 (06:15→23:14)
[2020-06-06 06:41] LABS: BASOPHILS % 0.6 % (0.0-2.0); EOSINOPHILS % 0.8 % (0.0-5.0); HEMATOCRIT. 24.6 % (36.0-48.0); LYMPHOCYTES % 11.8 % (20.0-50.0); MEAN CORPUSCULAR HEMOGLOBIN 30.5 pg (28.0-32.0); MEAN PLATELET VOLUME 9.3 fl (7.4-10.4); NEUTROPHILS % 74.8 % (40.0-76.0); PLATELET 145 x1000/uL (130-400); RED BLOOD CELL COUNT 2.61 mill/uL (4.2-5.4); RED CELL DISTRIBUTION WIDTH 17.8 % (11.6-14.6)
[2020-06-06] MEDS: ZINC SULFATE 220 MG ( 50 ) CAPSULE PO SCH (08:01)
[2020-06-06] MEDS: AMIODARONE HCL 200 MG TABLET PO SCH ×2 (08:01→20:21)
[2020-06-06] MEDS: ASCORBIC ACID 500 MG TABLET PO SCH ×2 (08:01→20:21)
[2020-06-06] MEDS: LEVOTHYROXINE SODIUM 50MCG TABLET PO SCH (08:01)
[2020-06-06] MEDS: CARVEDILOL 3.125 MG TABLET PO SCH ×2 (08:02→20:23)
[2020-06-06] MEDS: CHOLECALCIFEROL (D3) 1000 UNIT TABLET PO SCH (08:03)
[2020-06-06] MEDS: ASPIRIN 81MG TABLET PO SCH (08:03)
[2020-06-06] MEDS: ACETAMINOPHEN 325MG TABLET PO PRN ×2 (08:47→23:14)
[2020-06-06] MEDS: ENOXAPARIN 100MG/ML SYR SUBCUT SCH (15:30)
[2020-06-06] MEDS: ONDANSETRON HCL 4MG/2ML INJ IV PRN (16:15)
[2020-06-06] MEDS: FAMOTIDINE 20MG TABLET PO SCH (20:21)
[2020-06-07] VITALS (11 sets, daily range): BP systolic 90–154; BP diastolic 50–100
[2020-06-07] MEDS: FUROSEMIDE 100MG/10ML VIAL IVP SCH ×2 (06:00→17:42)
[2020-06-07] MEDS: LACTULOSE 20G/30ML UDC PO SCH ×3 (06:00→20:41)
[2020-06-07] MEDS: LEVOTHYROXINE SODIUM 50MCG TABLET PO SCH (08:25)
[2020-06-07] MEDS: ASCORBIC ACID 500 MG TABLET PO SCH ×2 (08:26→20:41)
[2020-06-07] MEDS: ZINC SULFATE 220 MG ( 50 ) CAPSULE PO SCH (08:26)
[2020-06-07] MEDS: CHOLECALCIFEROL (D3) 1000 UNIT TABLET PO SCH (08:26)
[2020-06-07] MEDS: AMIODARONE HCL 200 MG TABLET PO SCH ×2 (08:28→20:41)
[2020-06-07] MEDS: CARVEDILOL 3.125 MG TABLET PO SCH ×2 (08:28→20:43)
[2020-06-07] MEDS: ASPIRIN 81MG TABLET PO SCH (09:00)
[2020-06-07] MEDS: ENOXAPARIN 100MG/ML SYR SUBCUT SCH (15:30)
[2020-06-07] MEDS: FAMOTIDINE 20MG TABLET PO SCH (20:41)
[2020-06-08] VITALS (12 sets, daily range): BP systolic 97–148; BP diastolic 41–85
[2020-06-08] MEDS: LACTULOSE 20G/30ML UDC PO SCH ×2 (06:37→15:01)
[2020-06-08] MEDS: LEVOTHYROXINE SODIUM 50MCG TABLET PO SCH (06:37)
[2020-06-08] MEDS: FUROSEMIDE 100MG/10ML VIAL IVP SCH ×2 (06:43→17:34)
[2020-06-08] MEDS: ZINC SULFATE 220 MG ( 50 ) CAPSULE PO SCH (08:06)
[2020-06-08] MEDS: ASPIRIN 81MG TABLET PO SCH (08:06)
[2020-06-08] MEDS: ASCORBIC ACID 500 MG TABLET PO SCH (08:06)
[2020-06-08] MEDS: CHOLECALCIFEROL (D3) 1000 UNIT TABLET PO SCH (08:06)
[2020-06-08] MEDS: CARVEDILOL 3.125 MG TABLET PO SCH (08:07)
[2020-06-08] MEDS: AMIODARONE HCL 200 MG TABLET PO SCH (08:07)
[2020-06-08] MEDS: ENOXAPARIN 100MG/ML SYR SUBCUT SCH (15:01)
[2020-06-08] MEDS: ACETAMINOPHEN 325MG TABLET PO PRN (17:35)
== END 2020-06-08 23:52 | DRG 871 ==
LOC: ER 11:31 → 5EST 12:08 → SUPCPDRO 14:49 → ENRESERV 20:13 → 5EST 21:06
PROVIDERS: ADMIT Internal Medicine; ATTEND Internal Medicine
PROC: 4B02XTZ Measurement of Cardiac Defibrillator, External Approach (ICD-10-PCS; principal; 2020-05-29)
PROC: 05HY33Z Insertion of Infusion Device into Upper Vein, Percutaneous Approach (ICD-10-PCS; 2020-05-29)
PROC: B54NZZA Ultrasonography of Left Upper Extremity Veins, Guidance (ICD-10-PCS; 2020-05-29)
PROC: 5A1D70Z Performance of Urinary Filtration, Intermittent, Less than 6 Hours Per Day (ICD-10-PCS; 2020-05-31)
PROC: 06HY33Z Insertion of Infusion Device into Lower Vein, Percutaneous Approach (ICD-10-PCS; 2020-06-01)
PROC: B54BZZA Ultrasonography of Right Lower Extremity Veins, Guidance (ICD-10-PCS; 2020-06-01)
PROC: 5A1D70Z Performance of Urinary Filtration, Intermittent, Less than 6 Hours Per Day (ICD-10-PCS; 2020-06-01)
PROC: 5A1D70Z Performance of Urinary Filtration, Intermittent, Less than 6 Hours Per Day (ICD-10-PCS; 2020-06-02)
PROC: 5A1D70Z Performance of Urinary Filtration, Intermittent, Less than 6 Hours Per Day (ICD-10-PCS; 2020-06-03)
PROC: 5A1D70Z Performance of Urinary Filtration, Intermittent, Less than 6 Hours Per Day (ICD-10-PCS; 2020-06-04)
PROC: 5A1D70Z Performance of Urinary Filtration, Intermittent, Less than 6 Hours Per Day (ICD-10-PCS; 2020-06-07)
DX: A41.9 Sepsis, unspecified organism (principal); J18.9 Pneumonia, unspecified organism; I50.43 Acute on chronic combined systolic (congestive) and diastolic (congestive) heart failure; N17.0 Acute kidney failure with tubular necrosis; J96.01 Acute respiratory failure with hypoxia; G92 Toxic encephalopathy; E44.1 Mild protein-calorie malnutrition; I42.0 Dilated cardiomyopathy; N39.0 Urinary tract infection, site not specified; I13.0 Hypertensive heart and chronic kidney disease with heart failure and stage 1 through stage 4 chronic kidney disease, or unspecified chronic kidney disease; R18.8 Other ascites; I48.0 Paroxysmal atrial fibrillation; N18.30 Chronic kidney disease, stage 3 unspecified; E78.5 Hyperlipidemia, unspecified; E87.5 Hyperkalemia; D64.9 Anemia, unspecified; E66.01 Morbid (severe) obesity due to excess calories; E83.41 Hypermagnesemia; E03.9 Hypothyroidism, unspecified; E78.00 Pure hypercholesterolemia, unspecified; F41.9 Anxiety disorder, unspecified; I45.9 Conduction disorder, unspecified; E05.90 Thyrotoxicosis, unspecified without thyrotoxic crisis or storm; I34.0 Nonrheumatic mitral (valve) insufficiency; R00.1 Bradycardia, unspecified; J45.909 Unspecified asthma, uncomplicated; K59.00 Constipation, unspecified; Z20.822 Contact with and (suspected) exposure to COVID-19; M10.9 Gout, unspecified; Z79.01 Long term (current) use of anticoagulants; Z82.49 Family history of ischemic heart disease and other diseases of the circulatory system; Z86.74 Personal history of sudden cardiac arrest; I25.2 Old myocardial infarction; Z91.15 Patient's noncompliance with renal dialysis; Z95.810 Presence of automatic (implantable) cardiac defibrillator; Z99.2 Dependence on renal dialysis; Z88.0 Allergy status to penicillin; Z79.899 Other long term (current) drug therapy; Z79.82 Long term (current) use of aspirin; Z88.8 Allergy status to other drugs, medicaments and biological substances; Z93.0 Tracheostomy status; Z68.33 Body mass index [BMI] 33.0-33.9, adult
CPT/HCPCS: 36415; 36556; 36600; 71045; 76937; 80048; 80053; 80061; 80162; 80305; 81003; 82375; 82550; 82553; 82805; 82962; 83605; 83735; 83880; 84439; 84443; 84484; 85014; 85018; 85025; 86705; 86706; 86709; 86803; 87340; 87426; 93005; 93306; 93970; 96374; 97110; 97116; 97162; 99291; A6261; C1725; C1752; J0610; J1642; J1644; J1650; J1940; J1956; J2060; J2270; J2405; J2597; J3490; J7050; J7070; U0003; A4315

== ENCOUNTER → 2020-06-28 | Day surgery (SDC) | payer MEDICARE, MEDICAID ==
[2020-06-28] VITALS (17 sets, daily range): BP systolic 108–139; BP diastolic 75–90
[~2020-06-28] VITALS: Ht 175.3 cm; Wt 98.4 kg
[~2020-06-28] MED LIST changes: -CARV3.1242 MT; +CLINDAMYCIN 600MG PREMIX 50 ML IV NR; -DILT30TA3 PO; +FENTANYL CITRATE/PF 50MCG/ML 2ML VIAL IV ONE; -FERR325T6 PO; +LIDOCAINE HCL 1% 20ML VIAL (Pyxis) INJ ONE; -POTA20TA82 MT; -SENN-257 PO; -SIME80TA15 PO; -TRAM50TA3 MT; -ZNOU TP
== END | disposition home or self-care (01) ==
LOC: ANGIO 08:08
PROVIDERS: ATTEND Internal Medicine Critical Care Medicine
DX: N18.6 End stage renal disease (principal); Z99.2 Dependence on renal dialysis; Z79.82 Long term (current) use of aspirin; Z79.899 Other long term (current) drug therapy; Z98.890 Other specified postprocedural states; Z82.49 Family history of ischemic heart disease and other diseases of the circulatory system; Z88.0 Allergy status to penicillin; Z88.8 Allergy status to other drugs, medicaments and biological substances
CPT/HCPCS: 36558; 76937; 77001; C1750; C1769; C1887; J1642; J3010; J3490; 36589; 99152; 99153; G0500

== ENCOUNTER 2020-07-05 13:40 | Emergency (ER) | payer MEDICARE, MEDICAID ==
[~2020-07-05] VITALS: Ht 175.3 cm; Wt 99.0 kg
[~2020-07-05 13:40] MED LIST changes: -CLINDAMYCIN 600MG PREMIX 50 ML IV NR; -FENTANYL CITRATE/PF 50MCG/ML 2ML VIAL IV ONE; -LIDOCAINE HCL 1% 20ML VIAL (Pyxis) INJ ONE
[2020-07-05 13:48] VITALS: BP 127/91
[2020-07-05] MEDS ORDERED: DESMOPRESSIN ACETATE 4MCG/ML AMP IV ONE (14:15)
[2020-07-05 14:35] LABS: BASOPHILS % 1.2 % (0.0-2.0); EOSINOPHILS % 0.7 % (0.0-5.0); HEMOGLOBIN. 10.8 g/dL (12.0-16.0); LYMPHOCYTES % 13.1 % (20.0-50.0); MEAN CORPUSCULAR HEMOGLOBIN 30.9 pg (28.0-32.0); MEAN PLATELET VOLUME 10.4 fl (7.4-10.4); MONOCYTES % 6.8 % (2.0-8.0); NEUTROPHILS % 78.2 % (40.0-76.0); PLATELET 175 x1000/uL (130-400)
[2020-07-05 14:37] LABS: CHLORIDE 104 mEq/L (98-107)
[2020-07-05 14:41] LABS: INR 1.1; PROTHROMBIN TIME 11.9 sec (9.6-11.0)
[2020-07-05] MEDS ORDERED: SODIUM BICARBONATE 4% (2.4MEQ) 5ML VIAL IV ONE (14:42)
[2020-07-05] MEDS ORDERED: LIDOCAINE HCL 1% 20ML VIAL (Pyxis) INJ ONE (14:42)
[2020-07-05] MEDS ORDERED: DESMOPRESSIN ACETATE 30 MCG in SODIUM CHLORIDE 0.9% 50 ML IV NR (15:00)
== END 2020-07-05 18:00 | disposition home or self-care (01) ==
LOC: ER 13:54
DX: T82.838A Hemorrhage due to vascular prosthetic devices, implants and grafts, initial encounter (principal); X58.XXXA Exposure to other specified factors, initial encounter; I13.2 Hypertensive heart and chronic kidney disease with heart failure and with stage 5 chronic kidney disease, or end stage renal disease; E11.22 Type 2 diabetes mellitus with diabetic chronic kidney disease; N18.6 End stage renal disease; Z99.2 Dependence on renal dialysis; Z79.82 Long term (current) use of aspirin; Z79.899 Other long term (current) drug therapy; Z88.0 Allergy status to penicillin
CPT/HCPCS: 12001; 36415; 71045; 80053; 85025; 85610; 86850; 86870; 86900; 86901; 87040; 99284; J2597; J3490

== ENCOUNTER 2021-03-28 15:30 | Inpatient (IN) | payer MEDICARE, MEDICAID ==
[~2021-03-28] VITALS: Ht 175.3 cm; Wt 105.7 kg
[2021-03-28] MEDS: PIPERACILLIN/TAZ 3.375G PREMIX 50 ML IV SCH (04:15)
[2021-03-28 16:36] LABS: BASOPHILS % 0.8 % (0.0-2.0); EOSINOPHILS % 0.8 % (0.0-5.0); HEMATOCRIT. 36.9 % (36.0-48.0); HEMOGLOBIN. 11.9 g/dL (12.0-16.0); LYMPHOCYTES % 13.3 % (20.0-50.0); MEAN PLATELET VOLUME 9.3 fl (7.4-10.4); MONOCYTES % 12.5 % (2.0-8.0); NEUTROPHILS % 72.6 % (40.0-76.0); PLATELET 106 x1000/uL (130-400); RED BLOOD CELL COUNT 3.96 mill/uL (4.2-5.4); RED CELL DISTRIBUTION WIDTH 14.9 % (11.6-14.6)
[2021-03-28 16:43] LABS: CHLORIDE 91 mEq/L (98-107)
[2021-03-28 17:03] LABS: DIGOXIN 0.2 ng/mL (0.9-2.0)
[2021-03-28] MEDS ORDERED: ONDANSETRON HCL 4MG/2ML INJ IV ONE (18:00)
[2021-03-28] MEDS ORDERED: ACETAMINOPHEN 325MG TABLET PO ONE (19:45)
[2021-03-28 20:19] LABS: CLARITY URINE CLOUDY (CLEAR); COLOR URINE DARK YELLOW (YELLOW); KETONES URINE TRACE (NEGATIVE); LEUKOCYTE ESTERASE URINE 1+ (NEGATIVE); NITRITE URINE NEGATIVE (NEGATIVE); OCCULT BLOOD URINE 2+ (NEGATIVE); PROTEIN URINE 2+ (NEGATIVE); SPECIFIC GRAVITY URINE 1.016 (1.005-1.030)
[2021-03-28] MEDS ORDERED: CEFTRIAXONE 1 G PREMIX 50 ML IV ONE (21:45)
[2021-03-28] MEDS ORDERED: GUAIFENESIN 200MG/10ML SUGAR FREE UDC PO PRN (22:00)
[2021-03-28] MEDS ORDERED: LORAZEPAM 0.5MG TABLET PO PRN (22:00)
[2021-03-28] MEDS ORDERED: ZOLPIDEM TARTRATE 5MG TABLET PO PRN (22:00)
[2021-03-28] MEDS ORDERED: DIPHENHYDRAMINE 50MG/ML VIAL IV PRN (22:00)
[2021-03-28] MEDS ORDERED: CLONIDINE 0.1MG TABLET PO PRN (22:00)
[2021-03-28] MEDS ORDERED: MAGNESIUM/ALUMINUM HYDROXIDE/SIMETHICONE 30ML UDC PO PRN (22:00)
[2021-03-28] MEDS ORDERED: IPRATROPIUM/ALBUTEROL 0.5-3(2.5)MG/3ML NEB NEB PRN (22:00)
[2021-03-28] MEDS ORDERED: ACETAMINOPHEN 325MG TABLET PO PRN (22:00)
[2021-03-28] MEDS ORDERED: NITROGLYCERIN 0.4MG TABLET SL SL PRN (22:00)
[2021-03-28] MEDS ORDERED: NALOXONE HCL 0.4MG/ML VIAL IV PRN (22:15)
[2021-03-28] MEDS ORDERED: VANCOMYCIN 1 G PREMIX 200 ML IV NR (22:30)
[2021-03-28] MEDS: DOCUSATE SODIUM 100MG CAPSULE PO PRN (23:19)
[2021-03-28] MEDS: TRAMADOL 50MG TABLET PO PRN (23:20)
[2021-03-29 00:15] LABS: CREATINE KINASE 159 IU/L (26-192)
[2021-03-29 00:16] LABS: CREATINE KINASE MB FRACTION < 1.0 ng/mL (0.5-3.6)
[2021-03-29] MEDS: APIXABAN 5 MG TABLET PO SCH ×2 (06:08→17:33)
[2021-03-29] MEDS ORDERED: LEVOTHYROXINE SODIUM 112MCG TABLET PO SCH (07:50)
[2021-03-29] MEDS: LEVOTHYROXINE SODIUM 100MCG TABLET PO SCH (07:53)
[2021-03-29] MEDS: TRAMADOL 50MG TABLET PO PRN (07:54)
[2021-03-29 08:38] LABS: HEMATOCRIT. 38.4 % (36.0-48.0); HEMOGLOBIN. 12.7 g/dL (12.0-16.0); MEAN CORPUSCULAR HEMOGLOBIN 30.9 pg (28.0-32.0); MEAN CORPUSCULAR VOLUME 93.3 fL (81.0-99.0); MEAN PLATELET VOLUME 9.7 fl (7.4-10.4); PLATELET 102 x1000/uL (130-400); RED BLOOD CELL COUNT 4.12 mill/uL (4.2-5.4); RED CELL DISTRIBUTION WIDTH 15.3 % (11.6-14.6)
[2021-03-29 08:45] LABS: CHLORIDE 91 mEq/L (98-107)
[2021-03-29 08:51] LABS: PHOSPHORUS 3.7 mg/dL (2.5-4.9)
[2021-03-29 08:54] LABS: CREATINE KINASE 130 IU/L (26-192)
[2021-03-29 08:56] LABS: CREATINE KINASE MB FRACTION < 1.0 ng/mL (0.5-3.6)
[2021-03-29] MEDS: PIPERACILLIN/TAZ 3.375G PREMIX 50 ML IV SCH ×2 (09:15→21:00)
[2021-03-29 09:32] LABS: PLATELET ESTIMATE DECREASED
[2021-03-29] MEDS: CHOLECALCIFEROL (D3) 1000 UNIT TABLET PO SCH (09:32)
[2021-03-29] MEDS: ASCORBIC ACID 500 MG TABLET PO SCH ×2 (09:33→22:14)
[2021-03-29] MEDS: ZINC SULFATE 220 MG ( 50 ) CAPSULE PO SCH (09:33)
[2021-03-29] MEDS: FAMOTIDINE 20MG TABLET PO SCH (09:33)
[2021-03-29] MEDS: ASPIRIN 81MG EC TABLET PO SCH (09:34)
[2021-03-29] MEDS: SEVELAMER CARBONATE 800 MG TABLET PO SCH ×3 (09:34→20:27)
[2021-03-29] MEDS: AMIODARONE HCL 200 MG TABLET PO SCH (09:34)
[2021-03-29] MEDS: ONDANSETRON HCL 4MG/2ML INJ IV PRN ×2 (12:38→20:31)
[2021-03-29 13:45] LABS: HEPATITIS B SURFACE ANTIGEN NEGATIVE
[2021-03-29] MEDS: DIGOXIN 125MCG TABLET PO SCH (17:33)
[2021-03-29] MEDS: CARVEDILOL 3.125 MG TABLET PO SCH (22:16)
[2021-03-30] MEDS: ONDANSETRON HCL 4MG/2ML INJ IV PRN ×2 (01:42→15:07)
[2021-03-30 02:10] VITALS: BP 100/71
[2021-03-30 06:00] VITALS: BP 125/88
[2021-03-30] MEDS: APIXABAN 5 MG TABLET PO SCH ×2 (06:32→17:44)
[2021-03-30] MEDS: LEVOTHYROXINE SODIUM 100MCG TABLET PO SCH (06:32)
[2021-03-30 08:00] VITALS: BP 113/68
[2021-03-30] MEDS: PIPERACILLIN/TAZOBACTAM 3.375 G in DEXTROSE 5% WATER 50 ML IV SCH ×2 (09:39→21:42)
[2021-03-30] MEDS: ASPIRIN 81MG EC TABLET PO SCH (09:39)
[2021-03-30] MEDS: AMIODARONE HCL 200 MG TABLET PO SCH (09:39)
[2021-03-30] MEDS: CARVEDILOL 3.125 MG TABLET PO SCH ×3 (09:39→21:38)
[2021-03-30] MEDS: FAMOTIDINE 20MG TABLET PO SCH (09:39)
[2021-03-30] MEDS: ASCORBIC ACID 500 MG TABLET PO SCH ×2 (09:39→21:37)
[2021-03-30] MEDS: CHOLECALCIFEROL (D3) 1000 UNIT TABLET PO SCH (09:40)
[2021-03-30] MEDS: ZINC SULFATE 220 MG ( 50 ) CAPSULE PO SCH (09:40)
[2021-03-30] MEDS: SEVELAMER CARBONATE 800 MG TABLET PO SCH ×3 (09:40→17:46)
[2021-03-30 11:06] LABS: BASOPHILS % 0.7 % (0.0-2.0); EOSINOPHILS % 0.3 % (0.0-5.0); HEMATOCRIT. 39.5 % (36.0-48.0); HEMOGLOBIN. 12.8 g/dL (12.0-16.0); LYMPHOCYTES % 15.7 % (20.0-50.0); MEAN CORPUSCULAR HEMOGLOBIN 30.1 pg (28.0-32.0); MEAN CORPUSCULAR VOLUME 92.6 fL (81.0-99.0); MONOCYTES % 14.6 % (2.0-8.0); NEUTROPHILS % 68.7 % (40.0-76.0); PLATELET 112 x1000/uL (130-400); RED BLOOD CELL COUNT 4.26 mill/uL (4.2-5.4)
[2021-03-30] MEDS ORDERED: DESMOPRESSIN ACETATE 4MCG/ML AMP IV ONE (11:15)
[2021-03-30 12:00] VITALS: BP 108/57
[2021-03-30] MEDS ORDERED: DESMOPRESSIN ACETATE IVPB 20 MCG in SODIUM CHLORIDE 0.9% 50 ML IV SCH (12:30)
[2021-03-30 16:00] VITALS: BP 97/63
[2021-03-30] MEDS: DIGOXIN 125MCG TABLET PO SCH (17:46)
[2021-03-30 20:00] VITALS: BP 101/56
[2021-03-30] MEDS ORDERED: VANCOMYCIN 1 G PREMIX 200 ML IV NR (20:00)
[2021-03-31 04:00] VITALS: BP 118/67
[2021-03-31] MEDS: APIXABAN 5 MG TABLET PO SCH ×2 (06:00→17:20)
[2021-03-31] MEDS: LEVOTHYROXINE SODIUM 100MCG TABLET PO SCH (06:21)
[2021-03-31 08:00] VITALS: BP 118/74
[2021-03-31] MEDS: ZINC SULFATE 220 MG ( 50 ) CAPSULE PO SCH (08:57)
[2021-03-31] MEDS: FAMOTIDINE 20MG TABLET PO SCH (08:57)
[2021-03-31] MEDS: ASCORBIC ACID 500 MG TABLET PO SCH ×2 (08:57→21:09)
[2021-03-31] MEDS: SEVELAMER CARBONATE 800 MG TABLET PO SCH ×3 (08:57→17:40)
[2021-03-31] MEDS: PIPERACILLIN/TAZOBACTAM 3.375 G in DEXTROSE 5% WATER 50 ML IV SCH ×2 (08:57→21:08)
[2021-03-31] MEDS: CARVEDILOL 3.125 MG TABLET PO SCH ×2 (08:57→21:09)
[2021-03-31] MEDS: CHOLECALCIFEROL (D3) 1000 UNIT TABLET PO SCH (08:57)
[2021-03-31] MEDS: ASPIRIN 81MG EC TABLET PO SCH (08:59)
[2021-03-31] MEDS: AMIODARONE HCL 200 MG TABLET PO SCH (09:00)
[2021-03-31 12:00] VITALS: BP 136/76
[2021-03-31 16:00] VITALS: BP 148/75
[2021-03-31 20:00] VITALS: BP 103/68
[2021-03-31] MEDS ORDERED: DIGOXIN 125MCG TABLET PO SCH (21:00)
[2021-04-01] MEDS: ACETAMINOPHEN 325MG TABLET PO PRN (01:16)
[2021-04-01 04:00] VITALS: BP 120/72
[2021-04-01] MEDS: APIXABAN 5 MG TABLET PO SCH ×2 (05:06→17:01)
[2021-04-01] MEDS: LEVOTHYROXINE SODIUM 100MCG TABLET PO SCH (05:19)
[2021-04-01] MEDS: SEVELAMER CARBONATE 800 MG TABLET PO SCH ×3 (05:19→17:01)
[2021-04-01 06:41] LABS: BASOPHILS % 1.2 % (0.0-2.0); EOSINOPHILS % 1.5 % (0.0-5.0); HEMATOCRIT. 32.5 % (36.0-48.0); HEMOGLOBIN. 10.8 g/dL (12.0-16.0); LYMPHOCYTES % 21.5 % (20.0-50.0); MEAN CORPUSCULAR HEMOGLOBIN 30.9 pg (28.0-32.0); MEAN CORPUSCULAR VOLUME 92.6 fL (81.0-99.0); MEAN PLATELET VOLUME 9.9 fl (7.4-10.4); MONOCYTES % 16.9 % (2.0-8.0); NEUTROPHILS % 58.9 % (40.0-76.0); PLATELET 109 x1000/uL (130-400); RED BLOOD CELL COUNT 3.51 mill/uL (4.2-5.4); RED CELL DISTRIBUTION WIDTH 14.9 % (11.6-14.6)
[2021-04-01 08:00] VITALS: BP 109/72
[2021-04-01] MEDS: ASPIRIN 81MG EC TABLET PO SCH (09:00)
[2021-04-01] MEDS: CARVEDILOL 3.125 MG TABLET PO SCH ×2 (09:00→21:33)
[2021-04-01] MEDS: PIPERACILLIN/TAZOBACTAM 3.375 G in DEXTROSE 5% WATER 50 ML IV SCH ×2 (09:17→21:32)
[2021-04-01] MEDS: AMIODARONE HCL 200 MG TABLET PO SCH (09:17)
[2021-04-01] MEDS: ZINC SULFATE 220 MG ( 50 ) CAPSULE PO SCH (09:17)
[2021-04-01] MEDS: ASCORBIC ACID 500 MG TABLET PO SCH ×3 (09:17→21:56)
[2021-04-01] MEDS: CHOLECALCIFEROL (D3) 1000 UNIT TABLET PO SCH (09:17)
[2021-04-01] MEDS: FAMOTIDINE 20MG TABLET PO SCH (09:17)
[2021-04-01] MEDS: ONDANSETRON HCL 4MG/2ML INJ IV PRN ×3 (11:46→23:10)
[2021-04-01] MEDS: DOCUSATE SODIUM 100MG CAPSULE PO PRN (11:46)
[2021-04-01 12:00] VITALS: BP 114/81
[2021-04-01 16:00] VITALS: BP 93/53
[2021-04-01] MEDS: DIGOXIN 125MCG TABLET PO SCH (17:01)
[2021-04-01 20:00] VITALS: BP 116/80
[2021-04-02] VITALS: BP 116/77
[2021-04-02 06:00] VITALS: BP 116/77
[2021-04-02] MEDS: APIXABAN 5 MG TABLET PO SCH ×2 (06:19→16:42)
[2021-04-02] MEDS: LEVOTHYROXINE SODIUM 100MCG TABLET PO SCH (06:19)
[2021-04-02 07:42] LABS: BASOPHILS % 0.9 % (0.0-2.0); HEMATOCRIT. 35.1 % (36.0-48.0); HEMOGLOBIN. 11.5 g/dL (12.0-16.0); MEAN CORPUSCULAR HEMOGLOBIN 30.1 pg (28.0-32.0); MEAN PLATELET VOLUME 9.6 fl (7.4-10.4); MONOCYTES % 13.9 % (2.0-8.0); NEUTROPHILS % 55.2 % (40.0-76.0); PLATELET 132 x1000/uL (130-400); RED BLOOD CELL COUNT 3.82 mill/uL (4.2-5.4)
[2021-04-02 08:00] VITALS: BP 109/69
[2021-04-02] MEDS ORDERED: POTASSIUM CHLORIDE 20MEQ TABLET SR PO NR ×2 (08:45→09:15)
[2021-04-02] MEDS: ASPIRIN 81MG EC TABLET PO SCH (09:00)
[2021-04-02] MEDS: CARVEDILOL 3.125 MG TABLET PO SCH ×2 (09:00→22:37)
[2021-04-02] MEDS: ASCORBIC ACID 500 MG TABLET PO SCH ×2 (09:15→22:37)
[2021-04-02] MEDS: PIPERACILLIN/TAZOBACTAM 3.375 G in DEXTROSE 5% WATER 50 ML IV SCH ×2 (09:15→22:36)
[2021-04-02] MEDS: ZINC SULFATE 220 MG ( 50 ) CAPSULE PO SCH (09:15)
[2021-04-02] MEDS: FAMOTIDINE 20MG TABLET PO SCH (09:15)
[2021-04-02] MEDS: SEVELAMER CARBONATE 800 MG TABLET PO SCH ×3 (09:15→16:41)
[2021-04-02] MEDS: CHOLECALCIFEROL (D3) 1000 UNIT TABLET PO SCH (09:15)
[2021-04-02] MEDS: AMIODARONE HCL 200 MG TABLET PO SCH (09:15)
[2021-04-02 12:00] VITALS: BP 112/70
[2021-04-02 16:00] VITALS: BP 118/69
[2021-04-02] MEDS: ONDANSETRON HCL 4MG/2ML INJ IV PRN (16:41)
[2021-04-02] MEDS: DIGOXIN 125MCG TABLET PO SCH (16:41)
[2021-04-02] MEDS: ACETAMINOPHEN 325MG TABLET PO PRN (16:48)
[2021-04-02] MEDS: DOCUSATE SODIUM 100MG CAPSULE PO PRN (16:53)
[2021-04-02] MEDS ORDERED: VANCOMYCIN 1 G PREMIX 200 ML IV NR (18:00)
[2021-04-02 22:00] VITALS: BP 110/71
[2021-04-03 06:00] VITALS: BP 113/66
[2021-04-03] MEDS: APIXABAN 5 MG TABLET PO SCH ×2 (06:18→17:24)
[2021-04-03] MEDS: LEVOTHYROXINE SODIUM 100MCG TABLET PO SCH (06:19)
[2021-04-03 08:27] LABS: BASOPHILS % 1.1 % (0.0-2.0); EOSINOPHILS % 1.7 % (0.0-5.0); HEMATOCRIT. 33.7 % (36.0-48.0); HEMOGLOBIN. 11.1 g/dL (12.0-16.0); LYMPHOCYTES % 26.7 % (20.0-50.0); MEAN CORPUSCULAR HEMOGLOBIN 30.3 pg (28.0-32.0); MEAN CORPUSCULAR VOLUME 91.6 fL (81.0-99.0); MEAN PLATELET VOLUME 9.4 fl (7.4-10.4); NEUTROPHILS % 57.5 % (40.0-76.0); PLATELET 154 x1000/uL (130-400); RED BLOOD CELL COUNT 3.68 mill/uL (4.2-5.4); RED CELL DISTRIBUTION WIDTH 14.8 % (11.6-14.6)
[2021-04-03] MEDS: ZINC SULFATE 220 MG ( 50 ) CAPSULE PO SCH (09:51)
[2021-04-03] MEDS: SEVELAMER CARBONATE 800 MG TABLET PO SCH ×3 (09:51→17:24)
[2021-04-03] MEDS: CHOLECALCIFEROL (D3) 1000 UNIT TABLET PO SCH (09:51)
[2021-04-03] MEDS: DOCUSATE SODIUM 100MG CAPSULE PO PRN ×2 (09:51→17:27)
[2021-04-03] MEDS: CARVEDILOL 3.125 MG TABLET PO SCH ×2 (09:51→22:18)
[2021-04-03] MEDS: FAMOTIDINE 20MG TABLET PO SCH (09:51)
[2021-04-03] MEDS: ASCORBIC ACID 500 MG TABLET PO SCH ×2 (09:51→22:32)
[2021-04-03] MEDS: AMIODARONE HCL 200 MG TABLET PO SCH (09:51)
[2021-04-03] MEDS: ASPIRIN 81MG EC TABLET PO SCH (09:51)
[2021-04-03] MEDS: PIPERACILLIN/TAZOBACTAM 3.375 G in DEXTROSE 5% WATER 50 ML IV SCH ×2 (10:06→21:34)
[2021-04-03] MEDS: POTASSIUM CHLORIDE 20MEQ TABLET SR PO SCH (14:46)
[2021-04-03] MEDS: DIGOXIN 125MCG TABLET PO SCH (17:24)
[2021-04-03 20:00] VITALS: BP 125/69
[2021-04-04 04:00] VITALS: BP 112/69
[2021-04-04] MEDS: APIXABAN 5 MG TABLET PO SCH ×2 (06:15→18:06)
[2021-04-04] MEDS: LEVOTHYROXINE SODIUM 100MCG TABLET PO SCH (06:15)
[2021-04-04] MEDS: SEVELAMER CARBONATE 800 MG TABLET PO SCH ×3 (06:16→18:06)
[2021-04-04 07:38] LABS: BASOPHILS % 0.8 % (0.0-2.0); EOSINOPHILS % 1.8 % (0.0-5.0); HEMATOCRIT. 34.3 % (36.0-48.0); HEMOGLOBIN. 11.5 g/dL (12.0-16.0); LYMPHOCYTES % 22.9 % (20.0-50.0); MEAN CORPUSCULAR HEMOGLOBIN 30.8 pg (28.0-32.0); MEAN CORPUSCULAR VOLUME 91.6 fL (81.0-99.0); MEAN PLATELET VOLUME 9.3 fl (7.4-10.4); MONOCYTES % 11.2 % (2.0-8.0); NEUTROPHILS % 63.3 % (40.0-76.0); PLATELET 164 x1000/uL (130-400); RED BLOOD CELL COUNT 3.75 mill/uL (4.2-5.4); RED CELL DISTRIBUTION WIDTH 14.9 % (11.6-14.6)
[2021-04-04] MEDS ORDERED: APIXABAN 5 MG TABLET PO SCH (09:00)
[2021-04-04] MEDS: CHOLECALCIFEROL (D3) 1000 UNIT TABLET PO SCH (10:23)
[2021-04-04] MEDS: ASPIRIN 81MG EC TABLET PO SCH (10:23)
[2021-04-04] MEDS: FAMOTIDINE 20MG TABLET PO SCH (10:23)
[2021-04-04] MEDS: POTASSIUM CHLORIDE 20MEQ TABLET SR PO SCH (10:24)
[2021-04-04] MEDS: ASCORBIC ACID 500 MG TABLET PO SCH ×2 (10:24→21:44)
[2021-04-04] MEDS: CARVEDILOL 3.125 MG TABLET PO SCH ×2 (10:24→21:44)
[2021-04-04] MEDS: DOCUSATE SODIUM 100MG CAPSULE PO PRN ×2 (10:24→21:44)
[2021-04-04] MEDS: ZINC SULFATE 220 MG ( 50 ) CAPSULE PO SCH (10:24)
[2021-04-04] MEDS: AMIODARONE HCL 200 MG TABLET PO SCH (10:24)
[2021-04-04] MEDS: PIPERACILLIN/TAZOBACTAM 3.375 G in DEXTROSE 5% WATER 50 ML IV SCH (10:25)
[2021-04-04 12:00] VITALS: BP 105/61
[2021-04-04 16:00] VITALS: BP 95/45
[2021-04-04] MEDS: DIGOXIN 125MCG TABLET PO SCH (18:09)
[2021-04-04 20:00] VITALS: BP 108/70
[2021-04-04 23:25] VITALS: BP 105/75
[2021-04-05 04:00] VITALS: BP 107/68
[2021-04-05] MEDS: APIXABAN 5 MG TABLET PO SCH (06:23)
[2021-04-05] MEDS: LEVOTHYROXINE SODIUM 100MCG TABLET PO SCH (06:23)
[2021-04-05 07:43] LABS: BASOPHILS % 1.2 % (0.0-2.0); EOSINOPHILS % 1.9 % (0.0-5.0); HEMATOCRIT. 36.6 % (36.0-48.0); HEMOGLOBIN. 11.9 g/dL (12.0-16.0); MEAN CORPUSCULAR HEMOGLOBIN 29.9 pg (28.0-32.0); MEAN CORPUSCULAR VOLUME 91.9 fL (81.0-99.0); MEAN PLATELET VOLUME 9.5 fl (7.4-10.4); MONOCYTES % 10.6 % (2.0-8.0); NEUTROPHILS % 64.3 % (40.0-76.0); PLATELET 176 x1000/uL (130-400); RED BLOOD CELL COUNT 3.98 mill/uL (4.2-5.4)
[2021-04-05 08:00] VITALS: BP 110/66
[2021-04-05] MEDS: FAMOTIDINE 20MG TABLET PO SCH (09:52)
[2021-04-05] MEDS: ASCORBIC ACID 500 MG TABLET PO SCH (09:52)
[2021-04-05] MEDS: ASPIRIN 81MG EC TABLET PO SCH (09:53)
[2021-04-05] MEDS: CHOLECALCIFEROL (D3) 1000 UNIT TABLET PO SCH (09:53)
[2021-04-05] MEDS: ZINC SULFATE 220 MG ( 50 ) CAPSULE PO SCH (09:53)
[2021-04-05] MEDS: SEVELAMER CARBONATE 800 MG TABLET PO SCH ×2 (09:53→13:36)
[2021-04-05 12:00] VITALS: BP 118/71
[2021-04-05] MEDS: POTASSIUM CHLORIDE 20MEQ TABLET SR PO SCH (13:36)
[2021-04-05] MEDS: AMIODARONE HCL 200 MG TABLET PO SCH (13:36)
[2021-04-05] MEDS: CARVEDILOL 3.125 MG TABLET PO SCH (13:36)
[2021-04-05 16:04] VITALS: BP 124/73
== END 2021-04-05 16:39 | disposition home or self-care (01) | DRG 871 ==
LOC: ER 15:30 → MICUSO 20:13 → EDBEDREQTM 20:23 → EDBEDREQ 20:23 → 7EST 03-30 01:17 → 5WST 04-04 23:14
PROVIDERS: ADMIT Internal Medicine; ATTEND Internal Medicine
PROC: 5A1D70Z Performance of Urinary Filtration, Intermittent, Less than 6 Hours Per Day (ICD-10-PCS; principal; 2021-03-30)
PROC: 5A1D70Z Performance of Urinary Filtration, Intermittent, Less than 6 Hours Per Day (ICD-10-PCS; 2021-04-02)
PROC: 5A1D70Z Performance of Urinary Filtration, Intermittent, Less than 6 Hours Per Day (ICD-10-PCS; 2021-04-05)
DX: A41.89 Other specified sepsis (principal); I50.23 Acute on chronic systolic (congestive) heart failure; N18.6 End stage renal disease; U07.1 COVID-19; E46 Unspecified protein-calorie malnutrition; E87.1 Hypo-osmolality and hyponatremia; I13.2 Hypertensive heart and chronic kidney disease with heart failure and with stage 5 chronic kidney disease, or end stage renal disease; I42.0 Dilated cardiomyopathy; N39.0 Urinary tract infection, site not specified; D63.8 Anemia in other chronic diseases classified elsewhere; E03.9 Hypothyroidism, unspecified; E11.22 Type 2 diabetes mellitus with diabetic chronic kidney disease; E66.01 Morbid (severe) obesity due to excess calories; R04.0 Epistaxis; E78.00 Pure hypercholesterolemia, unspecified; E78.5 Hyperlipidemia, unspecified; I48.0 Paroxysmal atrial fibrillation; J44.9 Chronic obstructive pulmonary disease, unspecified; M10.9 Gout, unspecified; Z86.74 Personal history of sudden cardiac arrest; I25.2 Old myocardial infarction; Z95.810 Presence of automatic (implantable) cardiac defibrillator; Z99.2 Dependence on renal dialysis; Z88.0 Allergy status to penicillin; Z88.8 Allergy status to other drugs, medicaments and biological substances; Z79.899 Other long term (current) drug therapy; Z79.890 Hormone replacement therapy; Z79.1 Long term (current) use of non-steroidal anti-inflammatories (NSAID); Z79.01 Long term (current) use of anticoagulants; Z68.34 Body mass index [BMI] 34.0-34.9, adult
CPT/HCPCS: 36415; 71045; 80048; 80053; 80162; 80202; 81003; 82550; 82553; 82962; 83605; 83735; 84100; 84443; 84484; 85025; 86705; 86709; 86803; 87340; 87426; 93005; 93970; 99285; J0696; J2405; J2543; J2597; J3370; J7040; J7060